=== PATIENT | female | born 1980 | race Caucasian/White ===

== ENCOUNTER 2020-06-07 11:57 | Outpatient (REF) | payer OTHER, SELFPAY ==
[2020-06-07 12:31] LABS: COVID-19 Test Positive (Negative); IDNOW Serial# 55D5AD1C
== END 2020-06-07 11:58 | disposition home or self-care (01) ==
LOC: HO.LAB 11:57
PROVIDERS: Visit Provider Internal Medicine
DX: Z20.822 Contact with and (suspected) exposure to COVID-19 (principal)
CPT/HCPCS: 36415; 87635; C9803

== ENCOUNTER 2021-05-12 10:56 | Emergency (ER) | payer MEDICAID, SELFPAY ==
[2021-05-12 11:23] VITALS: BP 140/90; PULSE 63; RESP 19; TEMP 36.6; O2SAT 98; BMI 39.9
--- NOTE | 2021-05-12 11:32 | ED_ITS ---
HPI - Ear Problem General Chief complaint: Ear Problems Stated complaint: ear/throat and jaw pain Time Seen by Provider: 05/12/21 11:28 Source: patient and freelance interpreter/translator Mode of arrival: ambulatory Limitations: no limitations History of Present Illness HPI Narrative: 40 y/o female presenting to the ER with left ear pain, left jaw pain and a painful lump along her left jaw. She reports the pain started 2 days ago and has been worsening. It is worse with laying down and chewing. She states the pain starts in the lump and radiates up the jaw to the ear. She denies URI symptoms such as runny nose, cough, nasal congestion. No known sick contacts. No difficulty swallowing. No sore throat. MD Complaint: ear pain Location: left ear Duration: intermittent Severity: moderate Relieving factors: nothing Exacerbating factors: position of head and palpation Discharge from ear: no Associated symptoms ear: headache Treatment prior to arrival: none Related Data Previous Rx's Medication Instructions Recorded amoxicillin 875 mg-potassium 1 tab PO Q12H #20 tab 05/12/21 clavulanate 125 mg tablet ibuprofen 600 mg tablet 600 mg PO Q8H PRN #30 tab 05/12/21 Allergies Allergy/AdvReac Type Severity Reaction Status Date / Time No Known Allergies Allergy Unverified 11/13/19 19:11 [No Known Allergies*] Review of Systems Review of Systems: Constitutional: No Fever, No Chills ENT/Mouth: No sore throat, No Rhinorrhea, No Swallowing Difficulty, +Otalgia, No dental pain, No hearing loss, No ear drainage Eyes: No Eye Pain, No Swelling, No Redness Cardiovascular: No Chest Pain, No SOB, No Orthopnea, No Edema Respiratory: No Cough, No Sputum, No Wheezing, No dyspnea Gastrointestinal: No Nausea, No Vomiting, No abdominal Pain Musculoskeletal: No joint pain, No Myalgias Skin: No Skin Lesions, No rash Neuro: No Weakness, No Numbness, No Dizziness, No Headache Heme/Lymph: No Bruising, + Lymphadenopathy Physical Exam Vital Signs: Vital Signs: Last Vital Signs Temp 98 F 05/12/21 11:23 Pulse 63 05/12/21 11:23 Resp 19 05/12/21 11:23 BP 140/90 H 05/12/21 11:23 Pulse Ox 98 05/12/21 11:23 BMI result Body Mass Index 39.9 Appearance: Alert. Oriented X3. No acute distress. HEENT: angle of the left mandible with swelling and tenderness with associated LAD, left EAC and TM normal. no trismus, normal dentition and no palpable abscess CVS: Normal heart rate and rhythm. Pulses normal. Respiratory: No respiratory distress. Skin: Skin warm and dry. Normal skin color. Normal skin turgor. No rashes. Extremities: normal inspection, normal ROM x4 Neuro: Oriented X 3. No motor deficit. No sensory deficit. Course Course Course Narrative: 40 y/o female presenting to the ER with left ear pain, left jaw pain and a painful lump for the last few days. No dental pain. No ear infection. Normal swallow and no URI symptoms. Exam is most consistent with inflamed parotid gland. Counseled with sign language interpreter management - will give empiric abx as well. Stable for d/c Discharge Plan Discharge Clinical Impression: Acute parotitis Patient Disposition: Home, Self-Care Instructions: Adenitis (ED) Additional Instructions: If you develop new or worsening symptoms call 911 or come back to the ER for further evaluation. Prescriptions: New amoxicillin-pot clavulanate 875-125 mg tablet 1 tab PO Q12H Qty: 20 0RF ibuprofen 600 mg tablet 600 mg PO Q8H PRN (Reason: fever or pain) Qty: 30 0RF Referrals: Gabi Serna MD [Primary Care Provider] - 1 week (follow up) Stand Alone Forms: Work/School Release Interventions: ED Discharge Assessment Last Done: 05/12/21 12:11 Discharge Date/Time: 05/12/21 12:14 Print Language: Argentine
[2021-05-12] MEDS: Ibuprofen 600 MG TABLET PO (12:06)
[2021-05-12] MEDS: Acetaminophen 325 MG TABLET 975 MG PO (12:07)
== END 2021-05-12 12:14 | disposition home or self-care (01) ==
PROVIDERS: Emergency Provider Emergency Medicine; PCP Internal Medicine
DX: K11.21 Acute sialoadenitis (principal); R59.0 Localized enlarged lymph nodes; H92.02 Otalgia, left ear; R68.84 Jaw pain
CPT/HCPCS: 99283; 99284

== ENCOUNTER 2021-05-12 18:24 | Emergency (ER) | payer MEDICAID, SELFPAY ==
[2021-05-12 19:25] VITALS: BP 130/81; PULSE 75; RESP 18; TEMP 36.5; O2SAT 98; BMI 38.7
[2021-05-12] MEDS: Acetaminophen 325 MG TABLET 650 MG PO (19:36)
[2021-05-12 21:32] VITALS: BP 158/82; PULSE 70; RESP 16; TEMP 36.8; O2SAT 98
--- NOTE | 2021-05-12 23:12 | ED.EAR ---
HPI - Ear Problem General Chief complaint: Ear Problems Stated complaint: head, ear, neck pain Time Seen by Provider: 05/12/21 18:34 Source: patient Mode of arrival: ambulatory Limitations: no limitations History of Present Illness HPI Narrative: Patient comes today for a 2nd time complaining of left-sided facial pain. Earlier today she was diagnosed with an inflamed paranoid blood. Patient was prescribed ibuprofen and Augmentin. Patient states that she is still in pain and that is why she came back to the emergency room. Patient denies fever chills, no ear pain, no dental pain Related Data Previous Rx's Medication Instructions Recorded amoxicillin 875 mg-potassium 1 tab PO Q12H #20 tab 05/12/21 clavulanate 125 mg tablet ibuprofen 600 mg tablet 600 mg PO Q8H PRN #30 tab 05/12/21 Allergies Allergy/AdvReac Type Severity Reaction Status Date / Time No Known Allergies Allergy Verified 05/12/21 19:25 [No Known Allergies*] Review of Systems Review of Systems: Constitutional : No Weight loss, No Fever, No Chills, No Night Sweats, No Fatigue, No Malaise ENT/Mouth : No Hearing loss, No Ear Pain, No Nasal Congestion, No Sinus Pain, No Hoarseness, No sore throat, No Rhinorrhea, No Swallowing Difficulty, complaining of pain in the left side of the face and left side of the neck Eyes: No Eye Pain, No Swelling, No Redness, No Foreign Body, No Discharge, No Vision Changes Cardiovascular : No Chest Pain, No SOB, No Dyspnea on Exertion, No Orthopnea, No Edema, No Palpitations Respiratory : No Cough, No Sputum, No Wheezing, No Smoke Exposure, No Dyspnea Gastrointestinal : No Nausea, No Vomiting, No Diarrhea, No Constipation, No abdominal Pain, No Hematochezia, No Melena Genitourinary : no irregular bleeding, No Dysuria, No Urinary Frequency, No Hematuria, No Urinary Incontinence, No Urgency, No Flank Pain, No Urinary Flow Changes, No Hesitancy Musculoskeletal : No joint pain, No Myalgias, No Joint Swelling Skin : No Skin Lesions, No rash Neuro : No Weakness, No Numbness, No Paresthesias, No Loss of Consciousness, No Dizziness, No Headache Psych : No Anxiety/Panic, No Depression, No SI/HI/AH/VH, No Social Issues, Heme/Lymph: No Bruising, No Bleeding,No Lymphadenopathy Endocrine : No Polyuria, No Polydipsia, No Temperature Intolerance [facility], [facility] Social History Social History Advance Directives: No Advance Directives Information Provided: Yes Patient : No Physical Exam Vital Signs: Vital Signs: Last Vital Signs Temp 98.2 F 05/12/21 21:32 Pulse 70 05/12/21 21:32 Resp 16 05/12/21 21:32 BP 158/82 H 05/12/21 21:32 Pulse Ox 98 05/12/21 21:32 BMI result Body Mass Index 38.7 Const: Other: Appearance: Alert. Oriented X3. No acute distress. Eyes: Pupils equal, round and reactive to light. ENT: Pharynx normal. No dental pain. Left mandibular tenderness to palpation, ear canals bilaterally within normal limits, no trismus Neck: Normal inspection. Neck supple. No lymph nodes noted. No crepitus, flexion and extension of the neck within normal limits and no stiffness CVS: Normal heart rate and rhythm. Pulses normal. Normal S1 and S2 Respiratory: No respiratory distress. Breath sounds normal. No Wheezing. No rales Abdomen: Soft and nontender. No rigidity. No distention. Skin: Skin warm and dry. Normal skin color. Normal skin turgor. Extremities: No lower extremity edema. No Lacerations. No Rash Neuro: Oriented X 3. No motor deficit. No sensory deficit. Moving all extremities. No slurred speech. CN 2 through 12 grossly intact Psych: calm, cooperative, normal affect Course Course Course Narrative: Patient was given 1 dose of IM Toradol in the emergency room. Patient instructed to continue taking her antibiotic as instructed earlier today. Trigeminal neuralgia is not suspected. Has no pain in the floor of the mouth or in the neck, Magdaleno's angina is not suspected Discharge Plan Discharge Clinical Impression: Acute parotitis Patient Disposition: Home, Self-Care Instructions: Atypical Facial Pain (ED) Additional Instructions: Continue taking her antibiotic as prescribed. Please follow-up with your primary care physician tomorrow. If you have any worsening or new symptoms, please return to the emergency room or call 911 Prescriptions: No Action amoxicillin-pot clavulanate 875-125 mg tablet 1 tab PO Q12H Qty: 20 0RF ibuprofen 600 mg tablet 600 mg PO Q8H PRN (Reason: fever or pain) Qty: 30 0RF
[2021-05-12] MEDS: Ketorolac Tromethamine 60 MG/2 ML VIAL IM (23:21)
== END 2021-05-12 23:28 | disposition home or self-care (01) ==
PROVIDERS: Emergency Provider Emergency Medicine
DX: K11.21 Acute sialoadenitis (principal); M54.2 Cervicalgia; R68.84 Jaw pain
CPT/HCPCS: 96372; 99283; 99284; J1885

== ENCOUNTER 2021-05-26 09:11 | Outpatient (REF) | payer MEDICAID, SELFPAY ==
[2021-05-26 09:48] LABS: MANUAL DIFF FLAG NO
[2021-05-26 10:04] LABS: Basophils Percent Auto 0.5 % (0-2); Eosinophils Absolute Auto 0.1 X10*3/uL (0.0-0.4); Eosinophils Percent Auto 1.3 % (0-4); Hematocrit 44.3 % (37.0-47.0); Hemoglobin 14.2 g/dl (12.0-16.0); Imm Gran Abs Auto 0.01 X10*3/uL (0.00-0.03); Imm Gran Pct Auto 0.3 % (0.0-0.4); Lymphocytes Absolute Auto 1.7 X10*3/uL (1.2-4.9); Lymphocytes Percent Auto 43.6 % (20-40); Mean Corpuscular HGB Conc 32.1 g/dl (31.0-35.0); Mean Corpuscular Hemoglobin 29.8 pg (27.0-33.0); Mean Corpuscular Volume 93.1 fL (80.0-98.0); Mean Platelet Volume 9.6 fL (9.4-12.3); Monocytes Absolute Auto 0.4 X10*3/uL (0.1-1.2); Monocytes Percent Auto 10.2 % (2-11); Neutrophils Absolute Auto 1.7 x10*3/uL (2.0-8.3); Neutrophils Percent Auto 44.1 % (45-73); Platelet Count 360 X10*3/uL (160-400); Red Blood Count 4.76 X10*6/uL (4.20-5.50); Red Cell Distribution Width 14.1 % (11.0-16.0); White Blood Count 3.8 X10*3/uL (4.8-10.8)
[2021-05-26 10:34] LABS: Alanine Aminotransferase 30 U/L (0-31); Albumin Level 4.1 g/dL (3.5-5.0); Alkaline Phosphatase 86 U/L (39-117); Anion Gap 13 (12-20); Aspartate Amino Transferase 17 U/L (5-31); Bilirubin Total 0.3 mg/dL (0.0-1.0); Blood Urea Nitrogen 11 mg/dL (9-16); Calcium 9.5 mg/dL (8.4-10.2); Carbon Dioxide 28 mmol/L (22-29); Chloride 104 mmol/L (96-108); Estimated Glomerular Filt Rate > 60; Glucose Random 100 mg/dL (60-115); Potassium 4.9 mmol/L (3.3-5.1); Sodium 140 mmol/L (135-145); Total Protein 7.9 g/dL (6.5-8.0)
[2021-05-26 10:36] LABS: Erythrocyte Sedimentation Rate 25 MM/HR (0-20)
[2021-05-26 10:51] LABS: HBS Num1 1.05 mIU/mL (0-7.99); HBc Num1 0.08 S/CO (0.00-0.79); HBsAGNum1 0.18 S/CO (0.00-0.99); HIV AB/AG Nonreactive (Nonreactive); HIV Num 1 0.09 S/CO (0.00-0.99); Hepatitis B Core Antibody Nonreactive (Nonreactive); Hepatitis B Surface Antigen Negative (Negative); ~HepC Num1 0.55 S/CO (0.00-0.79); ~Hepatitis B Surface Antibody NONREACTIVE (Nonreactive); ~Hepatitis C Antibody Nonreactive (Nonreactive)
[2021-05-26 11:26] LABS: Folate 16.3 ng/mL (> or = 4.0); Vitamin B12 530 pg/mL (200-900)
[2021-05-27 08:31] LABS: ~Hepatitis A Antibody IgM Nonreactive (Nonreactive)
[2021-05-31 14:32] LABS: Vitamin D 25-OH, D2 <4 ng/mL; Vitamin D 25-OH, D3 6 ng/mL; Vitamin D 25-OH, Total 6 ng/mL (30-100)
== END 2021-05-26 09:12 | disposition home or self-care (01) ==
LOC: HO.LAB 09:11
PROVIDERS: PCP Nurse Practitioner Acute Care; Visit Provider Nurse Practitioner Acute Care
DX: Z11.4 Encounter for screening for human immunodeficiency virus [HIV] (principal); K11.21 Acute sialoadenitis
CPT/HCPCS: 36415; 80053; 82306; 82607; 82746; 84443; 85025; 85652; 86140; 86704; 86706; 86709; 86803; 87340; 87389

== ENCOUNTER 2021-07-23 18:07 | Inpatient (IN) | payer MEDICAID, SELFPAY ==
--- NOTE | ~2021-07-23 | CT_ITS ---
EXAMINATION: CT SOFT TISSUE NECK WITHOUT CONTRAST CLINICAL INFORMATION: Pain at left jaw, question abscess COMPARISON: None TECHNIQUE: Helical imaging was performed in the axial plane with generation of coronal and sagittal reformatted images. This CT examination was performed using dose optimization techniques as appropriate, variously including the following: *Automated exposure control *Adjustment of mA and/or kV according to patient size (this includes techniques or standardized protocols for targeted exams where dose is matched to indication/reason for exam; i.e. extremities or head) *Use of iterative reconstruction technique DLP: 651 mGy-cm FINDINGS: Stranding is present in the left parapharyngeal fat and adjacent to the deep aspect of the left parotid gland. No discrete fluid collection is seen, though assessment is somewhat limited without intravenous contrast. Scattered bilateral cervical lymph nodes are noted, slightly more prominent on the left with borderline enlargement. The submandibular glands appear symmetric. No contour abnormality is seen within the oral cavity or pharyngeal mucosal space. The laryngeal structures appear normal. No retropharyngeal fluid collection is seen. The thyroid gland is normal. The superior mediastinum is unremarkable. The lung apices are clear. The mastoid air cells and visualized portions of the paranasal sinuses are well-aerated. The temporomandibular joints are normal. There is mild disc space narrowing and endplate osteophyte formation in the lower cervical spine. The imaged portions of the brain parenchyma are unremarkable. CT/CT soft tissue neck wo con IMPRESSION: Stranding adjacent to the deep aspect of the left parotid gland and in the left parapharyngeal fat, which could be due to parotitis. No fluid collection identified on this noncontrast exam.
[2021-07-23 20:22] VITALS: PULSE 74; RESP 16; TEMP 36.2; O2SAT 97; BMI 35.2
[2021-07-23 20:37] LABS: MANUAL DIFF FLAG NO
[2021-07-23 20:59] LABS: Alanine Aminotransferase 31 U/L (0-31); Alkaline Phosphatase 81 U/L (39-117); Anion Gap 13 (12-20); Aspartate Amino Transferase 22 U/L (5-31); Bilirubin Total 0.3 mg/dL (0.0-1.0); Blood Urea Nitrogen 9 mg/dL (9-16); Calcium 9.6 mg/dL (8.4-10.2); Carbon Dioxide 28 mmol/L (22-29); Chloride 104 mmol/L (96-108); Creatinine Clr Calc Pharmacy 123.9; Estimated Glomerular Filt Rate > 60; Glucose Random 113 mg/dL (60-115); Potassium 3.9 mmol/L (3.3-5.1); Sodium 141 mmol/L (135-145); Total Protein 7.8 g/dL (6.5-8.0)
[2021-07-23 21:00] LABS: Basophils Percent Auto 0.2 % (0-2); Eosinophils Percent Auto 0.7 % (0-4); Hematocrit 42.1 % (37.0-47.0); Hemoglobin 13.6 g/dl (12.0-16.0); Imm Gran Abs Auto 0.01 X10*3/uL (0.00-0.03); Imm Gran Pct Auto 0.2 % (0.0-0.4); Lymphocytes Absolute Auto 2.3 X10*3/uL (1.2-4.9); Lymphocytes Percent Auto 39.5 % (20-40); Mean Corpuscular HGB Conc 32.3 g/dl (31.0-35.0); Mean Corpuscular Hemoglobin 29.4 pg (27.0-33.0); Mean Corpuscular Volume 90.9 fL (80.0-98.0); Mean Platelet Volume 9.6 fL (9.4-12.3); Monocytes Absolute Auto 0.6 X10*3/uL (0.1-1.2); Monocytes Percent Auto 10.4 % (2-11); Neutrophils Absolute Auto 2.8 x10*3/uL (2.0-8.3); Platelet Count 385 X10*3/uL (160-400); Red Blood Count 4.63 X10*6/uL (4.20-5.50); Red Cell Distribution Width 13.8 % (11.0-16.0); White Blood Count 5.8 X10*3/uL (4.8-10.8)
[2021-07-24] MEDS: Ketorolac Tromethamine 30 MG/ML VIAL 15 MG IVPUSH ×3 (00:24→21:57)
--- NOTE | 2021-07-24 00:38 | ED.DENTAL ---
HPI - Dental/Oral General Chief complaint: Dental/Oral Stated complaint: teeth hurt, cant open jaw, inflamed throat Time Seen by Provider: 07/24/21 00:11 Source: patient and language interpreter Mode of arrival: ambulatory History of Present Illness HPI Narrative: 40-year-old female with 2 day history of left lower ?wisdom tooth? pain that patient has had ongoing troubles with and now she states she is unable to open her mouth completely and reports chills but otherwise is able to breathe without difficulty and handle all secretions. Teeth map: 1. Pain, pus Related Data Previous Rx's Medication Instructions Recorded acetaminophen 500 mg tablet 1,000 mg PO Q6H PRN #60 tab 05/26/21 clindamycin HCl 300 mg capsule 300 mg PO Q6H #28 cap 05/26/21 ibuprofen 600 mg tablet 600 mg PO Q8H PRN #30 tab 05/26/21 cholecalciferol (vitamin D3) 50 50 mcg PO DAILY #30 cap 05/31/21 mcg (2,000 unit) capsule Allergies Allergy/AdvReac Type Severity Reaction Status Date / Time No Known Allergies Allergy Verified 05/26/21 08:12 [No Known Allergies*] Review of Systems Review of Systems: Pertinent positives and negatives as stated in HPI 10 point review of systems is otherwise negative. [facility] Past Medical History Source: nursing notes reviewed Family History Family History Mother Diabetes High blood pressure Father High blood pressure Diabetes Social History Social History Housing: Apartment Alcohol intake: never Patient Tobacco Use Status: Never used Tobacco Second Hand Smoke Exposure: No Use of substances other than those prescribed or required for medical reasons: No Advance Directives: No service: No Current occupational status: employed Physical Exam Vital Signs: Vital Signs: Last Vital Signs Temp 97.1 F 07/23/21 20:22 Pulse 74 07/23/21 20:22 Resp 16 07/23/21 20:22 Pulse Ox 97 07/23/21 20:22 BMI result Body Mass Index 35.2 VITAL SIGNS: Reviewed. GENERAL: Well developed, well nourished, in no acute distress. HEAD: Normocephalic/atraumatic EYES: PERRLA, EOMI EARS: Ext canals without abnormality, TMs non-bulging and non-erythematous; left external canal somewhat erythematous NOSE: Nares patent bilateral OROPHARYNX: Patient unable to open mouth adequately, floor of mouth is soft submental area is soft, with difficulty able to visualize left lower molar which clearly has a large cavity, questionable pus and mild erythema NECK: Supple, no adenopathy LUNGS: Normal breath sounds. No adventitious sounds or accessory muscle use. SpO2<97> CARDIOVASCULAR: Regular rate and rhythm without noted murmurs ABDOMEN: Soft, non-tender, non-distended with bowel sounds. MUSCULOSKELETAL: No tenderness, deformities, or effusions noted on gross inspection. EXTREMITIES: No cyanosis, clubbing or edema. SKIN: Inspection of the skin reveals no rashes NEUROLOGIC: Alert and oriented x 4. Strength and sensation to light touch were grossly intact x 4. Course Course Course Narrative: 40-year-old female with history and clinical presentation unlikely to be Magdaleno's although patient declines to open mouth adequately for extensive evaluation there is no noted gingival abscess patient is able to have tolerate secretions, there is no stridor or difficulty with breathing, the floor of the mouth and under side of the neck is soft and not consistent with Magdaleno's, will place IV give IV fluids as well as antibiotics and pain medication and re-evaluate. Also will pursue CT soft tissue for demonstration of abscess to better explain patient's inability to open her mouth. 0225: Review investigations does not show a leukocytosis, but after patient received pain medication and CT scan it demonstrates evidence to suggest contribution by dental caries. I discussed the case with the inpatient hospitalist who will accept the patient. At this time I suspect infection, will get lactic acid/blood cultures and give antibiotics. Patient will be informed of all plans and she will be admitted. [facility] - Dental/Oral Lab Data Result diagrams: 07/23/21 20:27 07/23/21 20:27 Labs: Lab Results 07/23/21 07/23/21 Range/Units 20:27 20:27 WBC 5.8 (4.8-10.8) X10*3/uL RBC 4.63 (4.20-5.50) X10*6/uL Hgb 13.6 (12.0-16.0) g/dl Hct 42.1 (37.0-47.0) % MCV 90.9 (80.0-98.0) fL MCH 29.4 (27.0-33.0) pg MCHC 32.3 (31.0-35.0) g/dl RDW 13.8 (11.0-16.0) % Plt Count 385 (160-400) X10*3/uL MPV 9.6 (9.4-12.3) fL Immature Gran % (Auto) 0.2 (0.0-0.4) % Neut % (Auto) 49.0 (45-73) % Lymph % (Auto) 39.5 (20-40) % Bee % (Auto) 10.4 (2-11) % Eos % (Auto) 0.7 (0-4) % Baso % (Auto) 0.2 (0-2) % Lymph # (Auto) 2.3 (1.2-4.9) X10*3/uL Bee # (Auto) 0.6 (0.1-1.2) X10*3/uL Eos # (Auto) 0.0 (0.0-0.4) X10*3/uL Baso # (Auto) 0.0 (0.0-0.2) X10*3/uL Abs Immat Gran (auto) 0.01 (0.00-0.03) X10*3/uL Absolute Neuts (auto) 2.8 (2.0-8.3) x10*3/uL Absolute Nucleated RBC 0.000 (0.0-0.012) X10*3/uL Nucleated RBC % (auto) 0.0 (0.0-0.2) /100WBC Sodium 141 (135-145) mmol/L Potassium 3.9 D (3.3-5.1) mmol/L Chloride 104 (96-108) mmol/L Carbon Dioxide 28 (22-29) mmol/L Anion Gap 13 (12-20) BUN 9 (9-16) mg/dL Creatinine 0.75 (0.5-1.4) mg/dL Estim Creat Clear Calc 123.9 Estimated GFR > 60 Random Glucose 113 (60-115) mg/dL Calcium 9.6 (8.4-10.2) mg/dL Total Bilirubin 0.3 (0.0-1.0) mg/dL AST 22 (5-31) U/L ALT 31 (0-31) U/L Alkaline Phosphatase 81 (39-117) U/L Total Protein 7.8 (6.5-8.0) g/dL Albumin 4.0 (3.5-5.0) g/dL Beta HCG, Quant < 2 mIU/mL Discharge Plan Discharge Clinical Impression: Acute parotitis, Dental caries Patient Disposition: Admitted As Inpatient Prescriptions: No Action cholecalciferol (vitamin D3) 50 mcg (2,000 unit) capsule 50 mcg PO DAILY Qty: 30 2RF acetaminophen 500 mg tablet 1,000 mg PO Q6H PRN (Reason: pain) Qty: 60 0RF ibuprofen 600 mg tablet 600 mg PO Q8H PRN (Reason: fever or pain) Qty: 30 0RF clindamycin HCl 300 mg capsule 300 mg PO Q6H Qty: 28 0RF
[2021-07-24 00:41] LABS: HCG Quantitative < 2 mIU/mL
[2021-07-24] MEDS: 0.9 % Sodium Chloride 1,000 ML 999 ML IV (03:06)
--- NOTE | 2021-07-24 03:08 | PC.NURSE ---
pt refusing second set of blood cultures to be drawn, aware.
[2021-07-24] MEDS: Nafcillin Sodium 2 GM in 0.9 % Sodium Chloride 100 ML IV (03:11)
[2021-07-24 03:12] LABS: COVID-19 Test Negative (Negative); IDNOW Serial# 55D5AD1C
[2021-07-24 03:15] LABS: IDNOW Serial# 9DB6401D; Influenza A Negative (Negative); Influenza B2 Negative (Negative)
--- NOTE | 2021-07-24 03:19 | PC.NURSE ---
per okay to administer abx without second set of blood cultures
[2021-07-24 03:20] VITALS: BP 145/82; PULSE 77; RESP 16; TEMP 37.1; O2SAT 99
[2021-07-24] MEDS: metroNIDAZOLE/NS 500 MG/100 ML PIGGYBACK 100 MG IV (03:46)
[2021-07-24] MEDS: Dextrose 5 % and 0.45 % NaCl 1,000 ML 100 ML IVCONT ×3 (05:57→21:57)
--- NOTE | 2021-07-24 06:08 | P.HPHOSP_ITS ---
History of Present Illness Date of Service: 07/24/21 Chief Complaint: left-sided jaw pain 40-year-old female with no significant past medical history presented to the hospital with a chief complaint of left-sided jaw pain. Patient reported that over the past 2 days she has been having left-sided lower jaw pain; attributes to possible wisdom tooth eruption; Patient reports gradual swelling on the left side of the face with difficulty opening the mouth; resulting in decreased oral intake. Denies any shortness of breath. Denies any fevers and chills. Denies any chest pain or palpitations. Review of all other systems is negative except mentioned above ER course: Per ER team patient's oral exam is limited as patient was ambulated able to open the mouth fully. soft tissues of the neck showed acute parotitis, no evidence of abscess. Given antibiotics. Admitted for further management. [facility] Family History Mother Diabetes High blood pressure Father High blood pressure Diabetes Social History Housing: Apartment Alcohol intake: never Patient Tobacco Use Status: Never used Tobacco Second Hand Smoke Exposure: No Use of substances other than those prescribed or required for medical reasons: No Advance Directives: No service: No Current occupational status: employed Meds Allergies Allergy/AdvReac Type Severity Reaction Status Date / Time No Known Allergies Allergy Verified 05/26/21 08:12 [No Known Allergies*] Active Medications: Current Medications Enoxaparin Sodium (Enoxaparin Sodium 40 Mg/0.4 Ml Syringe) 40 mg SUBCUT Q24H [facility] Dextrose/Sodium Chloride (D51/2ns) 1,000 mls @ 100 mls/hr IVCONT .Q10H [facility] Last Admin: 07/24/21 05:57 Dose: 100 mls/hr Documented by: Clindamycin Phosphate (Cleocin) 600 mg in 50 mls @ 100 mls/hr IV Q8H DANIELA Ketorolac Tromethamine (Ketorolac Tromethamine 30 Mg/Ml Vial) 15 mg IVPUSH Q6H PRN PRN Reason: Pain, Mild (Pain Scale 1-3) Stop: 07/29/21 04:17 Sodium Chloride (0.9 % Sodium Chloride Flush 3 Ml Syringe) 3 ml IVFLUSH QSHIFT [facility] Physical Exam Vital Signs and Narrative: Vital Signs: Last Vital Signs Temp 98.8 F 07/24/21 03:20 Pulse 77 07/24/21 03:20 Resp 16 07/24/21 03:20 BP 145/82 H 07/24/21 03:20 Pulse Ox 99 07/24/21 03:20 BMI result Body Mass Index 35.2 Results Labs CBC and Chem 7: 07/23/21 20:27 07/23/21 20:27 Labs: Laboratory Results - last 24 hr 07/23/21 07/23/21 07/24/21 20:27 20:27 02:47 MCV 90.9 MCH 29.4 MCHC 32.3 RDW 13.8 Plt Count 385 MPV 9.6 Immature Gran % (Auto) 0.2 Neut % (Auto) 49.0 Lymph % (Auto) 39.5 Rock % (Auto) 10.4 Eos % (Auto) 0.7 Baso % (Auto) 0.2 Lymph # (Auto) 2.3 Rock # (Auto) 0.6 Eos # (Auto) 0.0 Baso # (Auto) 0.0 Abs Immat Gran (auto) 0.01 Absolute Neuts (auto) 2.8 Absolute Nucleated RBC 0.000 Nucleated RBC % (auto) 0.0 Anion Gap 13 Estim Creat Clear Calc 123.9 Estimated GFR > 60 Random Glucose 113 Lactic Acid Calcium 9.6 Total Bilirubin 0.3 AST 22 ALT 31 Alkaline Phosphatase 81 Total Protein 7.8 Albumin 4.0 Beta HCG, Quant < 2 COVID-19 ([facility]) COVID-19 Clin Com Influenza Type A (AARON) Negative Influenza Type B (AARON) Negative Influenza A & B Note See Note 07/24/21 07/24/21 02:47 02:47 MCV MCH MCHC RDW Plt Count MPV Immature Gran % (Auto) Neut % (Auto) Lymph % (Auto) Rock % (Auto) Eos % (Auto) Baso % (Auto) Lymph # (Auto) Rock # (Auto) Eos # (Auto) Baso # (Auto) Abs Immat Gran (auto) Absolute Neuts (auto) Absolute Nucleated RBC Nucleated RBC % (auto) Anion Gap Estim Creat Clear Calc Estimated GFR Random Glucose Lactic Acid 1.0 Calcium Total Bilirubin AST ALT Alkaline Phosphatase Total Protein Albumin Beta HCG, Quant COVID-19 ([facility]ANDIS) Negative COVID-19 Clin Com See Note Influenza Type A (AARON) Influenza Type B (AARON) Influenza A & B Note Imaging Radiologist's Impressions: Impressions Soft Tissue Neck CT 07/24/21 01:17 IMPRESSION: Stranding adjacent to the deep aspect of the left parotid gland and in the left parapharyngeal fat, which could be due to parotitis. No fluid collection identified on this noncontrast exam. Assessment and Plan (1) Acute parotitis: Status: Acute Plan 40-year-old female with no significant past medical history presented to the hospital with a chief complaint of left-sided jaw pain/ Poor oral intake for the past 2 days. Noted to have acute parotitis. Admitted for further management. Acute pharyngitis: Continue clindamycin 600 mg IV t.i.d. NPO ->Advanced diet as tolerated Pain control gentle IV fluids Decadron IV x1 DVT prophylaxis: Lovenox Code status: Full code Quality Stroke Does the patient have a stroke diagnosis?: No VTE Prior VTE?: No VTE Risk Level:: Medical - moderate - high VTE Device Contraindication: Treatment Not Indicated VTE Drug Contraindication: N/A - Med Ordered
[2021-07-24] MEDS: Clindamycin Phosphate/D5W 600 MG/50 ML PIGGYBACK 100 MG IV ×3 (06:30→21:57)
[2021-07-24] MEDS: dexAMETHasone sod phosphate 4 MG/ML VIAL 6 MG IVPUSH (06:31)
[2021-07-24 07:19] LABS: MANUAL DIFF FLAG NO
[2021-07-24 07:22] LABS: Basophils Percent Auto 0.4 % (0-2); Eosinophils Percent Auto 0.6 % (0-4); Hemoglobin 12.7 g/dl (12.0-16.0); Imm Gran Abs Auto 0.01 X10*3/uL (0.00-0.03); Imm Gran Pct Auto 0.2 % (0.0-0.4); Lymphocytes Absolute Auto 2.2 X10*3/uL (1.2-4.9); Lymphocytes Percent Auto 41.3 % (20-40); Mean Corpuscular HGB Conc 32.6 g/dl (31.0-35.0); Mean Corpuscular Hemoglobin 30.1 pg (27.0-33.0); Mean Corpuscular Volume 92.4 fL (80.0-98.0); Mean Platelet Volume 9.7 fL (9.4-12.3); Monocytes Absolute Auto 0.5 X10*3/uL (0.1-1.2); Monocytes Percent Auto 9.9 % (2-11); Neutrophils Absolute Auto 2.5 x10*3/uL (2.0-8.3); Neutrophils Percent Auto 47.6 % (45-73); Platelet Count 352 X10*3/uL (160-400); Red Blood Count 4.22 X10*6/uL (4.20-5.50); Red Cell Distribution Width 13.8 % (11.0-16.0); White Blood Count 5.3 X10*3/uL (4.8-10.8)
[2021-07-24 07:28] VITALS: BP 133/94; PULSE 74; RESP 16; O2SAT 96
[2021-07-24 07:45] LABS: Anion Gap 12 (12-20); Blood Urea Nitrogen 9 mg/dL (9-16); Carbon Dioxide 26 mmol/L (22-29); Chloride 106 mmol/L (96-108); Creatinine Clr Calc Pharmacy 117.6; Estimated Glomerular Filt Rate > 60; Glucose Random 118 mg/dL (60-115); Potassium 3.9 mmol/L (3.3-5.1); Sodium 140 mmol/L (135-145)
[2021-07-24] MEDS: Enoxaparin Sodium 40 MG/0.4 ML SYRINGE SUBCUT (08:23)
[2021-07-24] MEDS: 0.9 % Sodium Chloride Flush 3 ML SYRINGE IVFLUSH ×3 (08:23→21:58)
--- NOTE | 2021-07-24 09:48 | PHA.MEDREC ---
Pharmacy Consult ? Medication Reconciliation Pharmacy has completed the medication reconciliation. Patient reports only taking vitamin d2. Carolina Cuevas, KemD
[2021-07-24 11:54] VITALS: BP 126/87; PULSE 79; RESP 14; O2SAT 95
--- NOTE | 2021-07-24 12:40 | PC.NURSE ---
First call to Medsurg. Magda luis to take report. awaiting call back at this time.
[2021-07-24 13:54] VITALS: BMI 35.2
[2021-07-24 15:25] VITALS: BP 114/76; PULSE 78; RESP 14; TEMP 36.3; O2SAT 95
--- NOTE | 2021-07-24 17:10 | P.PNIM_ITS ---
Subjective Subjective Date of Service: 07/24/21 Interval History: pt Irish speaking , obained the help of an diplomatic interpreter Pt reports improved pain and ability to open her mouth. she ate breakfast with minimal difficulty denies any overnight fever, no chills, no abd pain, no cp, no n/v. no SOB Review of Systems Review of Systems: Yes all other systems are reviewed and are negative Physical Exam Vital Signs: Vital Signs: Last Vital Signs Temp 97.3 F 07/24/21 15:25 Pulse 78 07/24/21 15:25 Resp 14 07/24/21 15:25 BP 114/76 07/24/21 15:25 Pulse Ox 95 07/24/21 15:25 BMI result Body Mass Index 35.2 Const: General: cooperative and no acute distress HEENT: Other: slight swelling, able to open her mouth with small amount of pain Resp: Effort & Inspection: normal respiratory effort Auscultation: clear to auscultation bilaterally Cardio: Other: RR GI: Inspection: Yes normal to inspection Palpation (GI): Soft to palpation Auscultation: normal bowel sounds Objective Data Active Medications Enoxaparin Sodium (Enoxaparin Sodium 40 Mg/0.4 Ml Syringe) 40 mg SUBCUT Q24H [facility] Last Admin: 07/24/21 08:23 Dose: 40 mg Documented by: SAUL Dextrose/Sodium Chloride (D51/2ns) 1,000 mls @ 100 mls/hr IVCONT .Q10H [facility] Last Admin: 07/24/21 13:52 Dose: 100 mls/hr Documented by: DIMITRIS Clindamycin Phosphate (Cleocin) 600 mg in 50 mls @ 100 mls/hr IV Q8H [facility] Last Infusion: 07/24/21 15:01 Dose: 0 mls/hr Documented by: DIMITRIS Ketorolac Tromethamine (Ketorolac Tromethamine 30 Mg/Ml Vial) 15 mg IVPUSH Q6H PRN PRN Reason: Pain, Mild (Pain Scale 1-3) Stop: 07/29/21 04:17 Last Admin: 07/24/21 14:10 Dose: 15 mg Documented by: DIMITRIS Sodium Chloride (0.9 % Sodium Chloride Flush 3 Ml Syringe) 3 ml IVFLUSH QSHIFT [facility] Last Admin: 07/24/21 13:49 Dose: 3 ml Documented by: DIMITRIS Labs CBC & Chem 7: 07/24/21 07:01 07/24/21 07:01 Labs: Laboratory Results - last 24 hr 07/23/21 07/23/21 07/24/21 20:27 20:27 02:47 MCV 90.9 MCH 29.4 MCHC 32.3 RDW 13.8 Plt Count 385 MPV 9.6 Immature Gran % (Auto) 0.2 Neut % (Auto) 49.0 Lymph % (Auto) 39.5 [place] % (Auto) 10.4 Eos % (Auto) 0.7 Baso % (Auto) 0.2 Lymph # (Auto) 2.3 [place] # (Auto) 0.6 Eos # (Auto) 0.0 Baso # (Auto) 0.0 Abs Immat Gran (auto) 0.01 Absolute Neuts (auto) 2.8 Absolute Nucleated RBC 0.000 Nucleated RBC % (auto) 0.0 Anion Gap 13 Estim Creat Clear Calc 123.9 Estimated GFR > 60 Random Glucose 113 Lactic Acid Calcium 9.6 Total Bilirubin 0.3 AST 22 ALT 31 Alkaline Phosphatase 81 Total Protein 7.8 Albumin 4.0 Beta HCG, Quant < 2 COVID-19 (CANDIS) COVID-19 Clin Com Influenza Type A (AARON) Negative Influenza Type B (AARON) Negative Influenza A & B Note See Note 07/24/21 07/24/21 07/24/21 02:47 02:47 07:01 MCV 92.4 MCH 30.1 MCHC 32.6 RDW 13.8 Plt Count 352 MPV 9.7 Immature Gran % (Auto) 0.2 Neut % (Auto) 47.6 Lymph % (Auto) 41.3 H [place] % (Auto) 9.9 Eos % (Auto) 0.6 Baso % (Auto) 0.4 Lymph # (Auto) 2.2 [place] # (Auto) 0.5 Eos # (Auto) 0.0 Baso # (Auto) 0.0 Abs Immat Gran (auto) 0.01 Absolute Neuts (auto) 2.5 Absolute Nucleated RBC 0.000 Nucleated RBC % (auto) 0.0 Anion Gap Estim Creat Clear Calc Estimated GFR Random Glucose Lactic Acid 1.0 Calcium Total Bilirubin AST ALT Alkaline Phosphatase Total Protein Albumin Beta HCG, Quant COVID-19 (CANDIS) Negative COVID-19 Clin Com See Note Influenza Type A (AARON) Influenza Type B (AARON) Influenza A & B Note 07/24/21 07:01 MCV MCH MCHC RDW Plt Count MPV Immature Gran % (Auto) Neut % (Auto) Lymph % (Auto) [place] % (Auto) Eos % (Auto) Baso % (Auto) Lymph # (Auto) [place] # (Auto) Eos # (Auto) Baso # (Auto) Abs Immat Gran (auto) Absolute Neuts (auto) Absolute Nucleated RBC Nucleated RBC % (auto) Anion Gap 12 Estim Creat Clear Calc 117.6 Estimated GFR > 60 Random Glucose 118 H Lactic Acid Calcium 9.0 D Total Bilirubin AST ALT Alkaline Phosphatase Total Protein Albumin Beta HCG, Quant COVID-19 (CANDIS) COVID-19 Clin Com Influenza Type A (AARON) Influenza Type B (AARON) Influenza A & B Note Microbiology Microbiology Results: Microbiology 07/24/21 02:58 Blood Culture - Final Blood - Venous Assessment and Plan (1) Acute parotitis: Status: Acute Plan 40-year-old female with no significant past medical history presented to the hospital with a chief complaint of left-sided jaw pain/? Poor oral intake for the past 2 days.? Noted to have acute parotitis.? Admitted for further management.? 3Acute pharyngitis: - improving - Continue clindamycin 600 mg IV t.i.d. -Advanced diet as tolerated - Pain control -?gentle IV fluids -?Decadron IV x1 ? DVT prophylaxis:? Lovenox Quality Stroke Does the patient have a stroke diagnosis?: No VTE Prior VTE?: No VTE Risk Level:: Medical - moderate - high VTE Device Contraindication: Treatment Not Indicated VTE Drug Contraindication: N/A - Med Ordered
[2021-07-24 19:36] VITALS: BP 129/74; PULSE 78; RESP 18; TEMP 36.7; O2SAT 97
[2021-07-24 23:39] VITALS: BP 119/52; PULSE 68; RESP 18; TEMP 35.9; O2SAT 96
[2021-07-25 03:50] VITALS: BP 136/44; PULSE 75; RESP 16; TEMP 36.3; O2SAT 96
[2021-07-25] MEDS: Clindamycin Phosphate/D5W 600 MG/50 ML PIGGYBACK 100 MG IV (05:13)
[2021-07-25] MEDS: Dextrose 5 % and 0.45 % NaCl 1,000 ML 100 ML IVCONT (05:13)
[2021-07-25 07:53] VITALS: BP 109/68; PULSE 69; RESP 15; TEMP 37; O2SAT 98
[2021-07-25] MEDS: Ketorolac Tromethamine 30 MG/ML VIAL 15 MG IVPUSH (07:59)
[2021-07-25] MEDS: Enoxaparin Sodium 40 MG/0.4 ML SYRINGE SUBCUT (08:00)
[2021-07-25] MEDS: 0.9 % Sodium Chloride Flush 3 ML SYRINGE IVFLUSH (08:00)
--- NOTE | 2021-07-25 10:45 | PM.DS ---
DS: Providers Provider Date of Service: 07/25/21 Date of admission: 07/24/21 04:19 Primary care physician: Unknown Physician DS: Diagnosis Discharge Diagnosis (1) Acute parotitis: Status: Acute DS: Summary Hospital Course Hospital Course: from initial hpi: Chief Complaint:? left-sided jaw pain ?40-year-old female with no significant past medical history presented to the hospital with a chief complaint of left-sided jaw pain.? Patient reported that over the past 2 days she has been having left-sided lower jaw pain; attributes to possible? wisdom tooth eruption; Patient reports gradual swelling on the left side of the face with difficulty opening the mouth; resulting in decreased oral intake.? Denies any shortness of breath.? Denies any fevers and chills.? Denies any chest pain or palpitations.? Review of all other systems is negative except mentioned above ER course: Per ER team patient's oral exam is limited as patient was ambulated able to open the mouth fully.? soft tissues of the neck showed acute parotitis, no evidence of abscess.? Given antibiotics.? Admitted for further management. hospital course: patient was admitted for left sided jaw pain and swelling, likely due to dental infection vs acute parotitis. she was treated with clindamycin with resolution of her symptoms. she will continue 7 more days augmentin and should follow up with dentist. for her obesity she should work on weight loss. Time Spent with Patient Time attestation: Total time spent providing and/or coordinating discharge services: Discharge coordination time: Greater than 30 minutes Quality: Safe Use of Opioids Does Pt have an Active Cancer Diagnosis on the Problem List?: No Quality: Stroke Does the patient have a stroke diagnosis?: No Physical Exam Vital Signs: Vital Signs: Last Vital Signs Temp 98.6 F 07/25/21 07:53 Pulse 69 07/25/21 07:53 Resp 15 07/25/21 07:53 BP 109/68 07/25/21 07:53 Pulse Ox 98 07/25/21 07:53 BMI result Body Mass Index 35.2 General: AO X 3, no acute distress Resp: CTA bilateral, no accessory muscles used CVS: S1,S2,RRR GI: soft, non tender, non distended Neuro: motor grossly intact, alert Psych: appropriate affect, appropriate insight DS: Data Data Completed and Pending Labs on day of discharge: Preliminary micro results at discharge 07/24/21 02:47 Blood Culture - Preliminary Blood - Venous No growth after 24 hours. Discharge Plan Discharge Patient Disposition: Home, Self-Care Discharge Diagnosis: dental infection vs parotits Referrals: Physician,Unknown J [Primary Care Provider] - 1 Week Discharge Medications: New amoxicillin-pot clavulanate 875-125 mg tablet 1 tab PO Q12H Qty: 14 0RF Continued ergocalciferol (vitamin D2) 10 mcg (400 unit) Tablet 10 mcg PO DAILY 0RF Discharge Orders: Discharge Order (Routine); Ordered 07/25/21 Ordered By: Parker Arteaga Diet: advance to usual diet Activity on Discharge: As tolerated Stand Alone Forms: Patient Portal Discharge page Care Plan Goals: recovery Health Concerns: facial infection Plan of Treatment: 7 days augmentin, follow up with dentist Assessment: see above
[2021-07-25 11:25] VITALS: BP 134/69; PULSE 72; RESP 12; TEMP 36.4; O2SAT 97
== END 2021-07-25 11:47 | disposition home or self-care (01) | DRG 115 ==
LOC: HO.ED 07-24 02:30 → HO.EDOVER 07-24 04:24 → HO.S3 07-24 12:32
PROVIDERS: Admitting Provider Hospitalist; Emergency Provider Student in an Organized Health Care Education/Training Program; Visit Provider Internal Medicine
DX: K11.21 Acute sialoadenitis (principal); J06.0 Acute laryngopharyngitis; K02.9 Dental caries, unspecified; Z20.822 Contact with and (suspected) exposure to COVID-19; Z79.899 Other long term (current) drug therapy
CPT/HCPCS: 36415; 70490; 80048; 80053; 83605; 84702; 85025; 87040; 87502; 87635; 96365; 96375; 99218; 99285; J1100; J1650; J1885

== ENCOUNTER 2021-09-20 11:41 | Emergency (ER) | payer MEDICAID, SELFPAY ==
--- NOTE | ~2021-09-20 | CT_ITS ---
EXAMINATION: CT SOFT TISSUE NECK WITHOUT CONTRAST CLINICAL INFORMATION: Dental pain. Question abscess or peritonitis. COMPARISON: CT soft tissue neck without contrast 07/24/2021 TECHNIQUE: Helical imaging was performed in the axial plane with generation of coronal and sagittal reformatted images. This CT examination was performed using dose optimization techniques as appropriate, variously including the following: *Automated exposure control *Adjustment of mA and/or kV according to patient size (this includes techniques or standardized protocols for targeted exams where dose is matched to indication/reason for exam; i.e. extremities or head) *Use of iterative reconstruction technique DLP: 740 mGy-cm FINDINGS: There is a fat stranding seen in the left parapharyngeal/submandibular, inferior to parotid gland and left premaxillary space similar previous study. Small shotty lymph nodes are seen in bilateral neck without enlargement and unchanged. The parotid glands are homogeneous in attenuation. The submandibular glands are normal. No contour abnormality or pathologic enhancement is seen within the oral cavity or pharyngeal mucosal space. The laryngeal structures are normal. . The carotid sheath are symmetrical and lack of IV contrast for further evaluation. No extra mucosal soft tissue mass or fluid collection is seen. No retropharyngeal fluid collection is seen. The thyroid gland is normal. The superior mediastinum is unremarkable. The lung apices are clear. The mastoid air cells and visualized portions of the paranasal sinuses are well-aerated. The temporomandibular joints are symmetrical and normal. There is an impacted lower left molar tooth no periapical cyst visualized. No osseous abnormalities are seen. The imaged portions of the brain parenchyma are unremarkable. CT/CT soft tissue neck wo con IMPRESSION: Mild fat stranding left parapharyngeal space adjacent to the submandibular gland, inferior and anterior to the parotid gland, similar to previous study 07/24/2021.. No focal lesion, abscess or mass seen. The salivary glands is stable. There is an impacted left lower molar tooth.. No periapical cyst or disease or erosive changes.
[2021-09-20 13:43] VITALS: BP 130/83; PULSE 76; RESP 18; TEMP 36.5; O2SAT 98; BMI 33.4
--- NOTE | 2021-09-20 15:18 | ED_ITS ---
HPI - Dental/Oral General Chief complaint: Dental/Oral <Nainamaria dolores Meneses CNP - Last Filed: 09/20/21 18:38> Stated complaint: pericoronitis sent by [facility] <Naina Meneses CNP - Last Filed: 09/20/21 18:38> Time Seen by Provider: 09/20/21 14:12 <Naina Meneses CNP - Last Filed: 09/20/21 18:38> Source: patient <Naina Mckeondarby Meneses CNP - Last Filed: 09/20/21 18:38> Mode of arrival: ambulatory <Naina Mary Meneses CNP - Last Filed: 09/20/21 18:38> Limitations: language barrier (Jordanian-speaking medical dir utilized) <Nainajose Meneses CNP - Last Filed: 09/20/21 18:38> History of Present Illness HPI Narrative: Patient presents emergency department by referral of her dentist. She was evaluated at the [facility] 2 days for persistent left lower posterior dental pain. Over the past 2 days she has worsening of her symptoms, and inability to open her mouth. States she was advised to come to the emergency department to determine whether IV antibiotics are required due to severe infection. Denies fevers, chills, chest pain, palpitations, shortness of breath, difficulty breathing, pain to her neck. <Nainajose Meneses CNP - Last Filed: 09/20/21 18:38> Related Data Home medications: Home Medications Medication Instructions Recorded Confirmed ergocalciferol (vitamin D2) 10 mcg 10 mcg PO DAILY 07/24/21 07/24/21 (400 unit) tablet Previous Rx's Medication Instructions Recorded amoxicillin 875 mg-potassium 1 tab PO Q12H #14 tabs 07/25/21 clavulanate 125 mg tablet amoxicillin 875 mg-potassium 1 tab PO Q12H 7 days #14 tabs 09/20/21 clavulanate 125 mg tablet <Nainamaria dolores Meneses CNP - Last Filed: 09/20/21 18:38> Allergies/adverse reactions: Allergies Allergy/AdvReac Type Severity Reaction Status Date / Time No Known Allergies Allergy Verified 09/20/21 13:43 [No Known Allergies*] <Naina Meneses CNP - Last Filed: 09/20/21 18:38> Review of Systems Review of Systems: Constitutional : No Fever, No Chills, No changes in PO intake, No difficulty speaking,? no recent dental procedure, positive heat or cold intolerance while eating, no recent face trauma, ENT/Mouth : No swallowing difficulty, no change in voice, positive jaw pain, positive facial swelling, no drooling, positive trismus, no bleeding, no throat swelling, no lacerations, no tongue swelling, gum swelling, Eyes: No Eye Pain, No periorbital Swelling Cardiovascular : No Chest Pain, No SOB Respiratory : No Cough, No Sputum, No Wheezing, No Smoke Exposure, No Dyspnea Gastrointestinal : No Nausea, No Vomiting, No Diarrhea Genitourinary : No Dysuria Musculoskeletal : No Myalgias Skin : No rash, no facial swelling or redness, Neuro : No Weakness, No Numbness, No Headache <Naina Meneses CNP - Last Filed: 09/20/21 18:38> Yes all other systems are reviewed and are negative <Naina Meneses CNP - Last Filed: 09/20/21 18:38> [facility] Past Medical History Attestation statement: The following information was validated with the patient. <Naina Meneses CNP - Last Filed: 09/20/21 18:38> Source: old records reviewed <Naina Meneses CNP - Last Filed: 09/20/21 18:38> Family History Family History: Family History Mother Diabetes High blood pressure Father High blood pressure Diabetes <Naina Meneses CNP - Last Filed: 09/20/21 18:38> Social History Social History: Social History Household Members: Family Housing: Apartment Alcohol intake: never Patient Tobacco Use Status: Never used Tobacco Second Hand Smoke Exposure: No Advance Directives: No Advance Directives Information Provided: No service: No Current occupational status: employed <Naina Meneses CNP - Last Filed: 09/20/21 18:38> Physical Exam Vital Signs: Vital Signs: Last Vital Signs Temp 97.7 F 09/20/21 13:43 Pulse 76 09/20/21 13:43 Resp 18 09/20/21 13:43 BP 130/83 09/20/21 13:43 Pulse Ox 98 09/20/21 13:43 O2 Del Method 09/20/21 13:43 BMI result Body Mass Index 33.4 Vital signs have been reviewed as normal and appeared to be correct. Blood pressure normal.? Heart rate normal.? Respiration rate normal. Temperature normal.? Oxygen saturation normal. <Naina Meneses CNP - Last Filed: 09/20/21 18:38> Vital Signs: Last Vital Signs Temp 97.7 F 09/20/21 13:43 Pulse 76 09/20/21 13:43 Resp 18 09/20/21 13:43 BP 130/83 09/20/21 13:43 Pulse Ox 98 09/20/21 13:43 O2 Del Method 09/20/21 13:43 BMI result Body Mass Index 33.4 <Pelon Parks MD - Last Filed: 09/20/21 18:36> Appearance: Alert. Oriented X3. No acute distress. Head: Normal external exam. Normocephalic. Atraumatic. Eyes: PERRLA. EOMI. Conjunctiva and sclera normal. Eyelids normal. ENT: EAC normal. TM's Normal. Pharynx normal. Uvula midline. Moist mucous membranes.? ?Positive trismus noted.? No drooling noted.? No muffled voice noted. Dentition:? Patient with poor dentition throughout with multiple dental caries.? Gingival erythema. Not consistent with peritonsillar abscess. difficult to assess for dental abscess due to limited opening of the mouth. Neck: Normal inspection. Neck supple. FROM. No adenopathy. Thyroid Normal. No meningeal signs. No neck mass noted.? Trachea midline. CVS: Normal heart rate and rhythm. Heart sound normal. No murmurs noted. Pulses normal throughout. Respiratory: No respiratory distress. Breath sounds normal. Skin: Skin warm and dry.? Normal skin color.? Extremities: Extremities exhibit normal range of motion.? Neuro: Oriented X 3.? No motor deficit.? No sensory deficit.? <Naina Meneses CNP - Last Filed: 09/20/21 18:38> Course Course Course Narrative: Patient is a 41-year-old female with a history of keratitis being sent to the emergency department from her dental provider with diagnosis of pericoronitis # 17 Due to severe cavity. She has a treatment plan for extraction of 1, 16, 17, 32 with Oral surgery. Referred to the emergency department for evaluation if need for IV antibiotics, otherwise her dental provider has sent a prescription for amoxicillin, ibuprofen, and Peridex to the pharmacy. On physical exam has facial symmetry, no significant adenopathy, soft tissues of the neck and lower jaw are soft. Obtain CBC, CMP, lactic acid, blood cultures, and CT of the soft tissue of the neck, IV clindamycin. <Naina Meneses CNP - Last Filed: 09/20/21 18:38> Reevaluation(s) Reevaluation #1: Labs are overall unremarkable, no leukocytosis. CT is pending at this time. <Naina Meneses CNP - Last Filed: 09/20/21 18:38> Time: 17:48 <Naina Meneses CNP - Last Filed: 09/20/21 18:38> Reevaluation #2: CT of the soft tissue neck reveals findings consistent with June 2021 CT mild fat stranding to the left parapharyngeal space no lesions abscesses or masses. At this time do not will be are seen indication for hospital admission or IV antibiotics. Advised patient that my recommendation would be for her to begin a course of Augmentin twice daily in addition to the ibuprofen and Peridex prescribed by dental provider. Follow-up as scheduled with dentist. Discussed worsening signs and symptoms return back to the emergency department for. All questions were answered. <Naina Meneses CNP - Last Filed: 09/20/21 18:38> Time: 18:30 <Naina Meneses CNP - Last Filed: 09/20/21 18:38> Reevaluation #3: I agree with history, physical and plan. No evidence of abscess or overwhelming infection will dc home on Augmentin twice a day <Pelon Parks MD - Last Filed: 09/20/21 18:36> Time: 18:35 <Pelon Parks MD - Last Filed: 09/20/21 18:36> MDM - Dental/Oral Medical Records Attestation: I reviewed the patient's medical records. <Naina Hernandez CLAU Meneses - Last Filed: 09/20/21 18:38> Lab Data Attestation: I reviewed the patient's lab results. <Naina Mary CLAU Meneses - Last Filed: 09/20/21 18:38> Result diagrams: : 09/20/21 17:30 09/20/21 17:30 <Naina Meneses CNP - Last Filed: 09/20/21 18:38> Labs: Lab Results 09/20/21 09/20/21 09/20/21 Range/Units 15:41 17:30 17:30 WBC 7.8 (4.8-10.8) X10*3/uL RBC 4.46 (4.20-5.50) X10*6/uL Hgb 13.0 (12.0-16.0) g/dl Hct 40.3 (37.0-47.0) % MCV 90.4 (80.0-98.0) fL MCH 29.1 (27.0-33.0) pg MCHC 32.3 (31.0-35.0) g/dl RDW 13.7 (11.0-16.0) % Plt Count 408 H (160-400) X10*3/uL MPV 9.1 L (9.4-12.3) fL Immature Gran % (Auto) 0.3 (0.0-0.4) % Neut % (Auto) 65.4 (45-73) % Lymph % (Auto) 25.0 (20-40) % [place] % (Auto) 8.5 (2-11) % Eos % (Auto) 0.5 (0-4) % Baso % (Auto) 0.3 (0-2) % Lymph # (Auto) 1.9 (1.2-4.9) X10*3/uL [place] # (Auto) 0.7 (0.1-1.2) X10*3/uL Eos # (Auto) 0.0 (0.0-0.4) X10*3/uL Baso # (Auto) 0.0 (0.0-0.2) X10*3/uL Abs Immat Gran (auto) 0.02 (0.00-0.03) X10*3/uL Absolute Neuts (auto) 5.1 (2.0-8.3) x10*3/uL Absolute Nucleated RBC 0.000 (0.0-0.012) X10*3/uL Nucleated RBC % (auto) 0.0 (0.0-0.2) /100WBC Sodium 141 (135-145) mmol/L Potassium 4.2 (3.3-5.1) mmol/L Chloride 103 (96-108) mmol/L Carbon Dioxide 28 (22-29) mmol/L Anion Gap 14 (12-20) BUN 11 (9-16) mg/dL Creatinine 0.67 (0.5-1.4) mg/dL Estim Creat Clear Calc 133.7 Estimated GFR > 60 Random Glucose 82 (60-115) mg/dL Lactic Acid 1.4 (0.5-2.0) mmol/L Calcium 9.2 (8.4-10.2) mg/dL Total Bilirubin 0.4 (0.0-1.0) mg/dL AST 16 (5-31) U/L ALT 19 (0-31) U/L Alkaline Phosphatase 89 (39-117) U/L Total Protein 7.9 (6.5-8.0) g/dL Albumin 4.1 (3.5-5.0) g/dL <Naina Meneses, [employer] MAN - Last Filed: 09/20/21 18:38> Lab Results 09/20/21 09/20/21 09/20/21 Range/Units 15:41 17:30 17:30 WBC 7.8 (4.8-10.8) X10*3/uL RBC 4.46 (4.20-5.50) X10*6/uL Hgb 13.0 (12.0-16.0) g/dl Hct 40.3 (37.0-47.0) % MCV 90.4 (80.0-98.0) fL MCH 29.1 (27.0-33.0) pg MCHC 32.3 (31.0-35.0) g/dl RDW 13.7 (11.0-16.0) % Plt Count 408 H (160-400) X10*3/uL MPV 9.1 L (9.4-12.3) fL Immature Gran % (Auto) 0.3 (0.0-0.4) % Neut % (Auto) 65.4 (45-73) % Lymph % (Auto) 25.0 (20-40) % [place] % (Auto) 8.5 (2-11) % Eos % (Auto) 0.5 (0-4) % Baso % (Auto) 0.3 (0-2) % Lymph # (Auto) 1.9 (1.2-4.9) X10*3/uL [place] # (Auto) 0.7 (0.1-1.2) X10*3/uL Eos # (Auto) 0.0 (0.0-0.4) X10*3/uL Baso # (Auto) 0.0 (0.0-0.2) X10*3/uL Abs Immat Gran (auto) 0.02 (0.00-0.03) X10*3/uL Absolute Neuts (auto) 5.1 (2.0-8.3) x10*3/uL Absolute Nucleated RBC 0.000 (0.0-0.012) X10*3/uL Nucleated RBC % (auto) 0.0 (0.0-0.2) /100WBC Sodium 141 (135-145) mmol/L Potassium 4.2 (3.3-5.1) mmol/L Chloride 103 (96-108) mmol/L Carbon Dioxide 28 (22-29) mmol/L Anion Gap 14 (12-20) BUN 11 (9-16) mg/dL Creatinine 0.67 (0.5-1.4) mg/dL Estim Creat Clear Calc 133.7 Estimated GFR > 60 Random Glucose 82 (60-115) mg/dL Lactic Acid 1.4 (0.5-2.0) mmol/L Calcium 9.2 (8.4-10.2) mg/dL Total Bilirubin 0.4 (0.0-1.0) mg/dL AST 16 (5-31) U/L ALT 19 (0-31) U/L Alkaline Phosphatase 89 (39-117) U/L Total Protein 7.9 (6.5-8.0) g/dL Albumin 4.1 (3.5-5.0) g/dL <Pelon Parks MD - Last Filed: 09/20/21 18:36> Imaging Data CT neck: Radiologist's impression: CT/CT soft tissue neck wo con IMPRESSION: Mild fat stranding left parapharyngeal space adjacent to the submandibular gland, inferior and anterior to the parotid gland, similar to previous study 07/24/2021.. No focal lesion, abscess or mass seen. ? The salivary glands is stable. ? There is an impacted left lower molar tooth.. No periapical cyst or disease or erosive changes. <Naina Meneses CNP - Last Filed: 09/20/21 18:38> Discharge Plan Discharge Clinical Impression: Dental caries, Pericoronitis <Naina Meneses CNP - Last Filed: 09/20/21 18:38> Patient Disposition: Home, Self-Care <Naina Meneses CNP - Last Filed: 09/20/21 18:38> Instructions: Adenitis (ED) <Naina Meneses CNP - Last Filed: 09/20/21 18:38> Additional Instructions: You have been given a prescription for Augmentin, this should be taken twice daily, please complete this entire course, this will be taken in addition to the ibuprofen and Peridex prescribed by your provider. Please follow-up with the dentist. Return to the emergency department any new or worsening symptoms or concerns Se le flowers recetado Augmentin, debe tomarlo dos veces al d?a, complete todo el tratamiento, se dru? adem?s del ibuprofeno y Peridex recetados por arambula proveedor. Por favor, seguimiento con el dentista. Devuelva al departamento de emergencias cualquier s?ntoma o inquietud nueva o que empeore <Naina Meneses CNP - Last Filed: 09/20/21 18:38> Prescriptions: New amoxicillin-pot clavulanate 875-125 mg tablet 1 tab PO Q12H 7 Days Qty: 14 0RF No Action ergocalciferol (vitamin D2) 10 mcg (400 unit) Tablet 10 mcg PO DAILY amoxicillin-pot clavulanate 875-125 mg tablet 1 tab PO Q12H Qty: 14 0RF <Naina Meneses CNP - Last Filed: 09/20/21 18:38> Print Language: Jordanian <Naina Meneses CNP - Last Filed: 09/20/21 18:38>
[2021-09-20 16:01] LABS: Lactic Acid 1.4 mmol/L (0.5-2.0)
[2021-09-20 17:36] LABS: MANUAL DIFF FLAG NO
[2021-09-20 17:42] LABS: Basophils Percent Auto 0.3 % (0-2); Eosinophils Percent Auto 0.5 % (0-4); Hematocrit 40.3 % (37.0-47.0); Imm Gran Abs Auto 0.02 X10*3/uL (0.00-0.03); Imm Gran Pct Auto 0.3 % (0.0-0.4); Lymphocytes Absolute Auto 1.9 X10*3/uL (1.2-4.9); Mean Corpuscular HGB Conc 32.3 g/dl (31.0-35.0); Mean Corpuscular Hemoglobin 29.1 pg (27.0-33.0); Mean Corpuscular Volume 90.4 fL (80.0-98.0); Mean Platelet Volume 9.1 fL (9.4-12.3); Monocytes Absolute Auto 0.7 X10*3/uL (0.1-1.2); Monocytes Percent Auto 8.5 % (2-11); Neutrophils Absolute Auto 5.1 x10*3/uL (2.0-8.3); Neutrophils Percent Auto 65.4 % (45-73); Platelet Count 408 X10*3/uL (160-400); Red Blood Count 4.46 X10*6/uL (4.20-5.50); Red Cell Distribution Width 13.7 % (11.0-16.0); White Blood Count 7.8 X10*3/uL (4.8-10.8)
--- NOTE | 2021-09-20 17:43 | PC.NURSE ---
20g IV Access established in left AC. Labs drawn and sent for analysis. Awaiting results.
[2021-09-20 18:02] LABS: Alanine Aminotransferase 19 U/L (0-31); Albumin Level 4.1 g/dL (3.5-5.0); Alkaline Phosphatase 89 U/L (39-117); Anion Gap 14 (12-20); Aspartate Amino Transferase 16 U/L (5-31); Bilirubin Total 0.4 mg/dL (0.0-1.0); Blood Urea Nitrogen 11 mg/dL (9-16); Calcium 9.2 mg/dL (8.4-10.2); Carbon Dioxide 28 mmol/L (22-29); Chloride 103 mmol/L (96-108); Creatinine Clr Calc Pharmacy 133.7; Estimated Glomerular Filt Rate > 60; Glucose Random 82 mg/dL (60-115); Potassium 4.2 mmol/L (3.3-5.1); Sodium 141 mmol/L (135-145); Total Protein 7.9 g/dL (6.5-8.0)
[2021-09-20] MEDS: Clindamycin Phosphate/D5W 300 MG/50 ML PIGGYBACK 100 MG IV (18:59)
== END 2021-09-20 19:46 | disposition home or self-care (01) ==
PROVIDERS: Nurse Practitioner Family; Emergency Provider Emergency Medicine
DX: K05.30 Chronic periodontitis, unspecified (principal); K02.9 Dental caries, unspecified; K08.89 Other specified disorders of teeth and supporting structures
CPT/HCPCS: 36415; 70490; 80053; 83605; 85025; 87040; 96365; 99283; 99284

== ENCOUNTER 2022-04-06 09:24 | Outpatient (REF) | payer OTHER, SELFPAY ==
[2022-04-06 12:06] LABS: Alanine Aminotransferase 17 U/L (0-31); Albumin Level 3.9 g/dL (3.5-5.0); Alkaline Phosphatase 90 U/L (39-117); Anion Gap 16 (12-20); Aspartate Amino Transferase 15 U/L (5-31); Bilirubin Total 0.3 mg/dL (0.0-1.0); Blood Urea Nitrogen 11 mg/dL (9-16); Carbon Dioxide 25 mmol/L (22-29); Chloride 105 mmol/L (96-108); Cholesterol 228 mg/dL; Estimated Glomerular Filt Rate > 60; Glucose Fasting 92 mg/dL (60-99); HDL Cholesterol 53 mg/dL; LDL Cholesterol Calculated 162 mg/dl; Potassium 4.7 mmol/L (3.3-5.1); Sodium 141 mmol/L (135-145); Thyroid Stimulating Hormone 3.52 uIU/mL (0.32-4.0); Total Protein 7.1 g/dL (6.5-8.0); Triglycerides 69 mg/dL; Vitamin D 25-OH Total 20.1 ng/mL (>30)
== END 2022-04-06 09:25 | disposition home or self-care (01) ==
LOC: HO.LAB 09:24
PROVIDERS: PCP Internal Medicine; Visit Provider Internal Medicine
DX: Z00.00 Encounter for general adult medical examination without abnormal findings (principal); E66.9 Obesity, unspecified; Z68.37 Body mass index [BMI] 37.0-37.9, adult; E55.9 Vitamin D deficiency, unspecified; E78.5 Hyperlipidemia, unspecified
CPT/HCPCS: 36415; 80053; 80061; 82306; 84443

== ENCOUNTER 2022-06-07 09:14 | Outpatient (REF) | payer OTHER, SELFPAY ==
--- NOTE | ~2022-06-07 | MM_ITS ---
EXAMINATION: MM SCREENING DIGITAL BREAST TOMOSYNTHESIS, BILATERAL CLINICAL INFORMATION: Screening. Asymptomatic. Age 41. [place] and [place] longer available. No known family history breast cancer. The lifetime risk of breast cancer based on the Tyrer-Cuzick Model is 7%. COMPARISON: None (current study represents new baseline exam). TECHNIQUE: Digital breast tomosynthesis is performed in both the craniocaudal and mediolateral oblique views along with computer-aided detection (CAD). Synthesized 2D images are generated from the tomosynthesis. FINDINGS: There are scattered areas of fibroglandular density (ACR BI-RADS breast composition Category b). There is a benign-appearing smooth nodule anterior upper outer left breast under 1 cm, 3.5 cm from nipple. As this represents new baseline, patient will be recalled for targeted ultrasound to fully characterize. The remainder the breasts show no significant mass or architectural abnormality. No abnormal calcifications. The axilla and skin contours are unremarkable. MM/MM tomosynthesis screening BI IMPRESSION: Left: -Benign-appearing smooth nodule anterior upper outer breast. Right: -No mammographic evidence of malignancy. ASSESSMENT: BI-RADS 0: Incomplete - Need Additional Imaging Evaluation RECOMMENDATION: 1. Targeted ultrasound left breast. 2. Radiology department staff will contact the patient for additional imaging. This patient's information was entered into a reminder system with a target due date for their next mammogram.
== END 2022-06-07 09:15 | disposition home or self-care (01) ==
LOC: HO.MAMMO 09:14
PROVIDERS: Visit Provider Internal Medicine
DX: Z12.31 Encounter for screening mammogram for malignant neoplasm of breast (principal)
CPT/HCPCS: 77063; 77067

== ENCOUNTER 2022-06-16 08:10 | Outpatient (REF) | payer OTHER, SELFPAY ==
--- NOTE | ~2022-06-16 | MM_ITS ---
EXAMINATION: MM DIAGNOSTIC DIGITAL BREAST TOMOSYNTHESIS, LEFT US TARGETED BREAST, LEFT CLINICAL INFORMATION: Left breast nodule COMPARISON: Mammography: 06/07/2022 TECHNIQUE: Digital breast tomosynthesis is performed. 2D images are generated from the tomosynthesis. The following views are obtained: Spot compression views in craniocaudal and mediolateral oblique projections. FINDINGS: There are scattered areas of fibroglandular density (ACR BI-RADS breast composition Category b). The additional views on mediolateral oblique projection demonstrate a well-circumscribed approximately 6 x 4 x 7 mm density with some mild lobulation and question of a fatty cleft on the craniocaudal view. Adjacent to this, is a 2 mm rounded, smoothly marginated density which could represent a vessel on end versus adjacent nodule. Targeted ultrasound evaluation of the left breast was then performed with no abnormal cystic or solid mass being identified and no region of abnormal distal sound shadowing being seen. Recommend 6 month follow-up left breast mammography to ensure stability. Results are discussed with the patient at time of visit. MM/MM tomosynthesis added views L IMPRESSION: Left breast density as described which may represent a lymph node with no definite ultrasound correlate being seen. Recommend 6 month follow-up left breast mammogram. ASSESSMENT: BI-RADS 3: Probably Benign RECOMMENDATION: Diagnostic mammography in 6 months. This patient's information was entered into a reminder system with a target due date for their next mammogram.
[2022-06-18 23:44] LABS: TS Negative Control Passed; TS Panel A 0; TS Panel B 0; TS Positive Control Passed; TSpotTB Negative (Negative)
== END 2022-06-16 08:11 | disposition home or self-care (01) ==
LOC: HO.MAMMO 08:10
PROVIDERS: PCP Internal Medicine; Visit Provider Internal Medicine
DX: Z11.1 Encounter for screening for respiratory tuberculosis (principal); R92.8 Other abnormal and inconclusive findings on diagnostic imaging of breast
CPT/HCPCS: 36415; 76642; 77061; 77065; 86481

== ENCOUNTER 2023-02-02 10:27 | Outpatient (REF) | payer OTHER, SELFPAY ==
--- NOTE | ~2023-02-02 | MM_ITS ---
EXAMINATION: MM DIAGNOSTIC DIGITAL BREAST TOMOSYNTHESIS, LEFT CLINICAL INFORMATION: First 6 month follow-up of left breast anterior slightly lateral ovoid density measuring up to 1.0 cm with mild lobulation and presence of a fatty hilum. Was not seen on ultrasound. COMPARISON: Mammography: 06/07/2022, 06/16/2022 TECHNIQUE: Digital breast tomosynthesis is performed in the following views: Full-field 3-D left CC and left MLO views, as well as a spot compression 3-D left cc view. FINDINGS: There are scattered areas of fibroglandular density (ACR BI-RADS breast composition Category b). There is a stable lobular mass with a small fatty hilum in the slightly upper slightly lateral left breast anterior one third, unchanged from the prior exam and most likely an incidental lymph node. This is extremely difficult to perceive on the CC view. It remains probably benign. No additional abnormal findings in the left breast. MM/MM tomosynthesis diagnostic LT IMPRESSION: There are no significant changes from prior study. Stable probably benign incidental lymph node in the anterior left breast. 6 month interval mammography recommended to ensure stability. ASSESSMENT: BI-RADS BI-RADS 3 - Probably benign finding(s) - 6 month follow-up suggested RECOMMENDATION: 6 Month F/U Results were provided to the patient at time of visit by the technologist. This patient's information was entered into a reminder system with a target due date for their next mammogram.
== END 2023-02-02 10:28 | disposition home or self-care (01) ==
LOC: HO.MAMMO 10:27
PROVIDERS: Visit Provider Internal Medicine
DX: R92.2 Inconclusive mammogram (principal)
CPT/HCPCS: 77061; 77065

== ENCOUNTER → 2023-02-02 10:30 | Outpatient (BNV) | payer OTHER, SELFPAY | PROVIDERS: Visit Provider Radiology Diagnostic Radiology | DX: R92.2 Inconclusive mammogram (principal) | CPT/HCPCS: 77061; 77065 ==

== ENCOUNTER 2023-04-09 16:33 | Outpatient (AMB) | payer OTHER, SELFPAY ==
--- NOTE | 2023-04-09 16:45 | MHC.PC.OV ---
Vital Signs 04/09/23 16:46 Height 5 ft 8 in Weight 241 lb BMI 36.6 BP 130/82 Blood Pressure Location Lt brachial Position Sitting Intake Visit Reasons: PE Intake Note: Patient here for a physical exam Consulting Sme Required: No Accompanied by: Self / Same As Patient Allergies No Known Allergies [No Known Allergies*] Allergy (Verified 04/09/23 17:02) Medication List - Last Reconciled 04/09/23 by Gabi Andrews MD No Known Home Meds Tobacco use date assessed: 04/09/23 Dental Screening Dental Screen Date: 04/09/23 Did you have a dental visit in the last 12 months?: Yes Did you have a dental problem in the last 6 months where you did not have access to dental care?: No Was dental information given to patient?: Patient has dentist HPI HPI Comments History of Present Illness Details This is a 42-year-old female with mild major depression that comes for her physical exam. Mammogram done. Last Pap smear was 2016 and was referred to OBGYN. Depression has been in remission and she declines the need for treatment. Her BMI is 36.6 and was advised to diet and exercise to reach BMI goal less than 30. No chest pain or shortness of breath. No fever or cough. No change of bowel or bladder habits. [facility] Surgical History History of wisdom tooth extraction Family History Mother Diabetes High blood pressure Father High blood pressure Social History Household Members: Family Housing: Apartment Alcohol intake: never Patient Tobacco Use Status: Never used Tobacco e-Cigarette/Vaping Use: Never Used Second Hand Smoke Exposure: No service: No Current occupational status: unemployed Current occupational exposures/hazards: No Cognitive needs: No Hearing needs: No Vision needs: No Questionnaire PHQ-9 Over the last 2 weeks, how often have you been bothered by any of the following problems? 1. Little interest or pleasure in doing things: several days 2. Feeling down, depressed, or hopeless: several days 3. Trouble falling or staying asleep, or sleeping too much: not at all 4. Feeling tired or having little energy: not at all 5. Poor appetite or overeating: several days 6. Feeling bad about yourself - or that you are a failure or have let yourself or your family down: not at all 7. Trouble concentrating on things, such as reading the newspaper or watching television: not at all 8. Moving or speaking so slowly that other people could have noticed. Or the opposite - being so fidgety or restless that you have been moving around a lot more than usual: several days 9. Thoughts that you would be better off or of hurting yourself in some way: not at all Total score: 4 Depression Screening Interpretation: Positive Depression Screening Follow-up: Existing condition Depression Screening Done: Yes 81750 - PHQ-9 Billing: Yes Source: Developed by Drs. Juan Johnson, Kathy Thornton, Steve Edmondson and colleagues, with an educational annie from [employer]. Thrive Questionnaire Date Thrive assessed: 04/09/23 I am a: Patient What is your living situation today?: I have a steady place to live Within the past 12 months, did the food you bought not last and you didn't have the money to get more?: Never true Within the past 12 months, did you worry whether your food would run out before you got money to buy more?: Never true Do you have trouble paying for medicines?: No Do you have trouble getting transportation to medical appointments?: No Do you have trouble paying your heating and electricity bill?: No Do you have trouble taking care of your child, family member or friend?: No Do you have trouble with day-to-day activities such as bathing, preparing meals, shopping, managing finances, etc.?: No Are you currently unemployed and looking for a job?: No Are you interested in more education?: No Please select the resources that you would like help with: None Currently or been in a relationship where the following occur: no concerns reported THRIVE Score: 0 AUDIT C Alcohol Use Questionnaire (AUDIT-C) 1. How often do you have a drink containing alcohol?: Never Total Score: 0 FRANDY-7 AMB Questionnaire FRANDY-7 Date FRANDY - 7 assessed: 04/09/23 Feeling nervous, anxious, or on edge: 1 = Several days Not being able to stop or control worryin = Not at all Worrying too much about different things: 1 = Several days Trouble relaxin = Not at all Being so restless that it is hard to sit still: 0 = Not at all Becoming easily annoyed or irritable: 2 = More than half the days Feeling afraid as if something awful might happen: 0 = Not at all Total FRANDY-7 score (0-4 normal; 5-9 mild; 10-14 moderate; 15-21 severe): 4 Source: Developed by Drs. Juan Johnson, Kathy Thornton, Steve Edmondson and colleagues, with an educational annie from [employer]. FRANDY-7 Assessment Billing FRANDY-7 Assessment Tool: FRANDY-7 Assessment 25685 Review of Systems Const All systems reviewed & are unremarkable except as noted in HPI and below Eyes Reports no additional complaints, Denies change in vision and Denies other visual disturbances Card Denies chest pain at rest, Denies chest pain with activity, Denies edema, Denies irregular heart rhythm, Denies claudication, Denies dyspnea, Denies dyspnea on exertion, Denies orthopnea, Denies paroxysmal nocturnal dyspnea and Denies slow heart rate Resp Denies cough, Denies dyspnea and Denies dyspnea on exertion GI Denies abdominal pain, Denies change in bowel habits, Denies excessive flatus, Denies nausea and Denies vomiting Denies urinary incontinence, Denies urinary hesitancy and Denies urinary urgency Musc Denies abnormal gait, Denies atrophy, Denies deformity and Denies limited range of motion Skin/Breast Denies bleeding lesions, Denies changing lesions and Denies rash Neuro Denies abnormal gait, Denies behavioral changes, Denies confusion and Denies lack of coordination Psych Denies behavioral changes and Denies confusion Physical exam (Primary Care) Vital Signs: Last Vital Signs BP 130/82 04/09/23 16:46 BMI result Body Mass Index 36.6 Tobacco/Smoking Status: Tobacco use Status Tobacco use date assessed 04/09/23 04/09/23 16:54 Patient Tobacco Use Status Never used Tobacco 04/09/23 16:54 e-Cigarette/Vaping Use Never Used 04/09/23 16:54 PHQ-9: PHQ-9 Score PHQ-9: Total score 4 04/09/23 16:54 Depression Screening Interpretation: Positive Depression Screening Follow-up: Existing condition Thrive Assessment: Date of Thrive Assessment Date Thrive assessed 04/09/23 04/09/23 16:54 Currently or been in a relationship where the following occur: no concerns reported Const General: No confusion Orientation/consciousness: patient oriented x3 and No confusion HENMT Head: Yes normal to inspection, Yes normocephalic and Yes atraumatic Ears: external ears normal Eyes General: appearance normal, both eyes and all related structures Eyelids: Yes eyelids normal Conjunctivae: conjunctivae normal Neck Neck: Yes normal visual inspection and Yes supple Resp Effort & Inspection: normal respiratory effort Auscultation: clear to auscultation bilaterally Cardio Jugular venous distension: no JVD Rate: regular rate Rhythm: regular rhythm Heart sounds: S1 normal heart sound present and S2 normal heart sound present GI Inspection: Yes normal to inspection Palpation (GI): Soft to palpation and nontender Auscultation: normal bowel sounds Skin General skin exam: no rashes or lesions noted Neuro General: patient oriented x3, no focal motor deficits and No confusion Extrem General: Yes full ROM Psych Appearance: grossly normal Assessment and Plan Assessment & Plan (1) Physical exam: Code(s): Z00.00 - Encounter for general adult medical examination without abnormal findings Plan: Repeat in a year. (2) Mild major depression: Code(s): F32.0 - Major depressive disorder, single episode, mild Plan: In remission. Orders: Orders Lipid Panel Today E78.5 - Hyperlipidemia, unspecified Comprehensive [place]. Panel Fast Today Z00.00 - Encounter for general adult medical examination without abnormal findings Referrals [facility] Referral Z12.4 - Encounter for screening for malignant neoplasm of cervix Coding Level of Care Code Est Pt Prev Care 40-64y(03105) Diagnoses Physical exam Z00.00 Mild major depression F32.0 Additional Codes FRANDY-7 Assessment Billing - FRANDY-7 Assessment Tool: FRANDY-7 Assessment 04232 ([id number]) Time Spent (min) 33
[2023-04-09 16:46] VITALS: BP 130/82; BMI 36.6
== END 2023-04-09 17:12 | disposition home or self-care (01) ==
PROVIDERS: Visit Provider Internal Medicine
DX: Z00.00 Encounter for general adult medical examination without abnormal findings (principal); F32.0 Major depressive disorder, single episode, mild; Z68.36 Body mass index [BMI] 36.0-36.9, adult
CPT/HCPCS: 99396

== ENCOUNTER 2023-05-18 08:54 | Outpatient (REF) | payer OTHER, SELFPAY ==
[2023-05-18 10:07] LABS: Alanine Aminotransferase 23 U/L (0-31); Albumin Level 3.9 g/dL (3.5-5.0); Alkaline Phosphatase 90 U/L (39-117); Anion Gap 11 (12-20); Aspartate Amino Transferase 18 U/L (5-31); Bilirubin Total 0.4 mg/dL (0.0-1.0); Blood Urea Nitrogen 15 mg/dL (9-16); Calcium 9.6 mg/dL (8.4-10.2); Carbon Dioxide 28 mmol/L (22-29); Chloride 104 mmol/L (96-108); Cholesterol 216 mg/dL (<200); Estimated Glomerular Filt Rate > 60; Glucose Fasting 101 mg/dL (60-99); HDL Cholesterol 68 mg/dL (>40); LDL Cholesterol Calculated 134 mg/dL (<100); Potassium 3.9 mmol/L (3.3-5.1); Sodium 139 mmol/L (135-145); Total Protein 7.8 g/dL (6.5-8.0); Triglycerides 70 mg/dL (<150)
== END 2023-05-18 08:55 | disposition home or self-care (01) ==
LOC: HO.LAB 08:54
PROVIDERS: PCP Internal Medicine; Visit Provider Internal Medicine
DX: Z00.00 Encounter for general adult medical examination without abnormal findings (principal); E78.5 Hyperlipidemia, unspecified
CPT/HCPCS: 36415; 80053; 80061

== ENCOUNTER 2023-06-12 11:23 | Outpatient (AMB) | payer OTHER, SELFPAY ==
[2023-06-12 11:36] VITALS: BP 128/82; BMI 37.4
--- NOTE | 2023-06-12 11:36 | MHC.OFFVIS ---
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 No complaints. Last Pap/HPV was ascus/HPV negative in 05/12 Last Mammogram was BI-RADS 3 in 02/17, the recommendation was to repeat in 6 months [facility] Surgical History History of wisdom tooth extraction Family History Mother Diabetes High blood pressure Father High blood pressure Prostate cancer Family/Other Breast cancer Social History Household Members: Spouse and Family Housing: Apartment Alcohol intake: never Patient Tobacco Use Status: Never used Tobacco e-Cigarette/Vaping Use: Never Used Second Hand Smoke Exposure: No service: No Current occupational status: unemployed Current occupational exposures/hazards: No Sexually active: No Sexual orientation: Straight/Heterosexual Gender identity: Female Cognitive needs: No Hearing needs: No Vision needs: No Female Reproductive History Menstrual Total pregnancies: 4 Full term: 2 Number of Living Children: 2 Ab spontaneous: 2 Date of Mammogram: 02/02/23 Review of Systems Const All systems reviewed & are unremarkable except as noted in HPI and below Card Reports as per HPI Resp Reports as per HPI GI Reports as per HPI and Reports no additional complaints Reports as per HPI Physical Exam Vital Signs: Last Vital Signs BP 128/82 06/12/23 11:36 BMI result Body Mass Index 37.4 Const General: cooperative, healthy appearing and comfortable Chest Chest palpation & inspection: normal inspection of the chest and normal palpation of entire chest wall Breast/axilla inspection: normal inspection of the breasts and normal inspection of the axillae Breast/axilla palpation: normal palpation of the breasts, normal palpation of the axillae and no axillary lymphadenopathy Resp Effort & Inspection: normal respiratory effort Auscultation: clear to auscultation bilaterally Percussion: percussion normal Cardio Palpation: normal PMI Rate: regular rate Rhythm: regular rhythm Heart sounds: no murmurs and no rubs Peripheral pulses: Peripheral pulses 2+ throughout GI Inspection: Yes normal to inspection Palpation (GI): Soft to palpation, nontender, no guarding, not rigid and No hepatosplenomegaly present Percussion: Yes normal to percussion Auscultation: normal bowel sounds Rectal Exam - Female: deferred General: Yes bladder normal to palpation External Female Exam: No lesion Speculum Exam - Vagina: normal appearance of the vagina, normal palpation, normal vaginal discharge and not erythematous Speculum Exam - Cervix: normal appearance of the cervix and normal palpation Bimanual exam- vagina & uterus: normal bimanual exam, normal palpation, uterine size normal, bladder normal to palpation, consistency normal and normal palpation Bimanual Exam- Adnexa, other: normal adnexae, no masses and no tenderness Assessment & Plan Assessment & Plan (1) Well woman exam: Code(s): Z01.419 - Encounter for gynecological examination (general) (routine) without abnormal findings Plan: Cotesting done. Mammogram scheduled in 08/19 Counseled the patient about the recommended dietary allowance of 1000 mg of Calcium & 600 IU of vitamin D. The patient was instructed to perform monthly self-breast exams and to schedule an annual exam in a year; All questions answered and the patient verbalized understanding. Instructed the patient to schedule annual exam in a year Coding Level of Care Code New Pt Prev Care 40-64y(88201) Diagnoses Well woman exam Z01.419
== END 2023-06-12 12:30 | disposition home or self-care (01) ==
PROVIDERS: Visit Provider Obstetrics & Gynecology
DX: Z01.419 Encounter for gynecological examination (general) (routine) without abnormal findings (principal)
CPT/HCPCS: 99386

== ENCOUNTER 2023-06-12 11:23 | Outpatient (REF) | payer OTHER, SELFPAY ==
[2023-06-14 23:29] LABS: HPV mRNA E6/E7 rflx Not Detected (Not Detected)
== END 2023-06-12 11:24 | disposition home or self-care (01) ==
LOC: HO.LNP 11:23
PROVIDERS: Visit Provider Obstetrics & Gynecology
DX: Z01.419 Encounter for gynecological examination (general) (routine) without abnormal findings (principal); Z11.51 Encounter for screening for human papillomavirus (HPV)
CPT/HCPCS: 87624; 88142; 99386

== ENCOUNTER 2024-03-19 09:14 | Emergency (ER) | payer OTHER, SELFPAY ==
[2024-03-19 09:54] VITALS: BP 131/91; PULSE 82; RESP 18; TEMP 37.1; O2SAT 98; BMI 40.1
--- NOTE | 2024-03-19 09:55 | ED.NAVMDI ---
HPI - Nausea/Vomiting/Diarrhea General Chief complaint: Nausea/Vomiting/Diarrhea Stated complaint: Sick Time Seen by Provider: 03/19/24 09:59 Source: patient, old records reviewed and field case manager Mode of arrival: ambulatory Limitations: no limitations History of Present Illness ED Provider: DEVAN TOLEDO Narrative: 43 yo female with PMH of depression, obesity, here with c/o n/v/d since Sunday. No travel, abx use, no sick contacts. no, cough or belly pain. She c/o fever Sunday. Her son is also ill. She last vomited yesterday. NO severe pain, bloody stools. MD elicited complaint: nausea, vomiting and diarrhea Onset (ago): day(s) (few) Description of vomiting: food contents and watery Description of diarrhea: watery Associated nausea: Yes Associated abdominal pain: No Severity: moderate Exacerbating factors: eating Relieving factors: none Context: sick contacts Associated symptoms: loss of appetite, malaise and nausea/vomiting Related Data Previous Rx's ?Medication ?Instructions ?Recorded ondansetron 4 mg disintegrating 4 mg PO Q8H PRN nausea and 03/19/24 tablet vomiting #20 tabs Allergies Allergy/AdvReac Type Severity Reaction Status Date / Time No Known Allergies Allergy Verified 03/19/24 09:55 [No Known Allergies*] Review of Systems Review of Systems: Constitutional : No Weight loss, No Fever, No Chills ENT/Mouth : No sore throat, No Rhinorrhea Eyes: No Swelling, No Redness Cardiovascular : No Chest Pain, No SOB, NoEdema Respiratory : No Cough, No Sputum, No Wheezing Gastrointestinal : Positive Nausea, Positive Vomiting, positive Diarrhea, no abdominal Pain, No Hematochezia, No Melena Genitourinary : No Dysuria, No Urinary Frequency, No Hematuria, No Urgency Musculoskeletal : No joint pain, No Myalgias, No Joint Swelling Skin : No Skin Lesions, No rash Neuro : No Weakness, No Numbness, No Dizziness, No Headache All other systems reviewed and are negative. Gastrointestinal: Gastrointestinal: Reports nausea PMFSH Past Medical History Surgical History History of wisdom tooth extraction Family History Family History Mother Diabetes High blood pressure Father High blood pressure Prostate cancer Family/Other Breast cancer Social History Social History Household Members: Spouse and Family Housing: Apartment Alcohol intake: never Patient Tobacco Use Status: Never used Tobacco e-Cigarette/Vaping Use: Never Used Second Hand Smoke Exposure: No Do you have a plan to hurt others: No Plan service: No Current occupational status: unemployed Current occupational exposures/hazards: No Sexual orientation: Straight/Heterosexual Gender identity: Female Cognitive needs: No Hearing needs: No Vision needs: No Physical Exam Vital Signs: Vital Signs: Last Vital Signs Temp 98.8 F 03/19/24 09:54 Pulse 82 03/19/24 09:54 Resp 18 03/19/24 09:54 BP 131/91 H 03/19/24 09:54 Pulse Ox 98 03/19/24 09:54 O2 Del Method Room Air 03/19/24 09:54 BMI result Body Mass Index 40.1 Appearance: Alert. Oriented X3. No acute distress. Eyes: Pupils equal, round and reactive to light. ENT: Pharynx normal. MMM Neck: Normal inspection. Neck supple. CVS: Normal heart rate and rhythm. Pulses normal. Respiratory: No respiratory distress. Breath sounds normal. Abdomen: Soft and nontender. Skin: Skin warm and dry. Normal skin color. Normal skin turgor. Extremities: No lower extremity edema. No calf ttp Neuro: Oriented X 3. No motor deficit. No sensory deficit. CN2-12 intact Medications Administered Discontinued Medications Generic Name Dose Route Start Last Admin Trade Name Tarasq PRN Reason Stop Dose Admin Ondansetron HCl 4 mg 03/19/24 09:56 03/19/24 09:59 Ondansetron Odt 4 Mg Tab.Rapdis TRANSLINGU 03/19/24 09:57 4 mg ONCE ONE Administration Medical Decision Making Medical Decision Making MDM Narrative: 43 yo female with PMH of depression, obesity, here with c/o n/v/d since Sunday. No travel, abx use, no, cough or belly pain. She c/o fever sunday night. At this time not toxic, will obtain basic labs, start on zofran. She has no red flags on exam including no belly pain, no vomiting in waiting room, no bloody stools her son is also sick. Will obtain basic labs and DC on zofran Differential Diagnosis Differential Diagnoses: The differential diagnosis associated with the presentation includes viral syndrome, dehydration Admission/Observation Consideration of admission/observation: Escalation of care including admission/observation considered not dehydrated not toxic appearing no abdominal pain labs reassuring Lab Data MDM Lab Attestation statement: I reviewed the patient's lab results. 03/19/24 10:38 03/19/24 10:38 Labs: Lab Results 03/19/24 Range/Units 10:38 WBC 3.1 L (4.8-10.8) X10*3/uL RBC 4.86 (4.20-5.50) X10*6/uL Hgb 13.6 (12.0-16.0) g/dl Hct 41.4 (37.0-47.0) % MCV 85.2 (80.0-98.0) fL MCH 28.0 (27.0-33.0) pg MCHC 32.9 (31.0-35.0) g/dl RDW 15.6 (11.0-16.0) % Plt Count 366 (160-400) X10*3/uL MPV 8.9 L (9.4-12.3) fL Sodium 138 (135-145) mmol/L Potassium 4.0 (3.3-5.1) mmol/L Chloride 106 (96-108) mmol/L Carbon Dioxide 26 (22-29) mmol/L Anion Gap 10 L (12-20) BUN 13 (9-16) mg/dL Creatinine 0.75 (0.5-1.4) mg/dL Estim Creat Clear Calc 112.5 Estimated GFR > 60 Random Glucose 91 (60-115) mg/dL Calcium 9.2 (8.4-10.2) mg/dL Magnesium 2.1 (1.6-2.6) mg/dL Total Bilirubin 0.3 (0.0-1.0) mg/dL Direct Bilirubin 0.1 (0.0-0.5) mg/dL AST 35 H (5-31) U/L ALT 31 (0-31) U/L Alkaline Phosphatase 78 (39-117) U/L Total Protein 8.2 H (6.5-8.0) g/dL Albumin 3.9 (3.5-5.0) g/dL Lipase 20 (8-78) U/L External Record Review External record reviewed: Outpatient record Prescription Management I considered prescription management with: Other Discharge Plan Discharge Clinical Impression: Acute viral syndrome Patient Disposition: Home, Self-Care Instructions: Viral Syndrome (ED) Additional Instructions: labs reassuring bland diet advance slowly stay hydrated return for any worsening symptoms or concerns Prescriptions: New ondansetron 4 mg tablet,disintegrating 4 mg PO Q8H PRN (Reason: nausea and vomiting) Qty: 20 0RF Stand Alone Forms: Work/School Release Print Language: Japanese
[2024-03-19] MEDS: Ondansetron ODT 4 MG TAB.RAPDIS TRANSLINGU (09:59)
[2024-03-19 10:51] LABS: Basophils Percent Auto 0.3 % (0-2); Eosinophils Absolute Auto 0.1 X10*3/uL (0.0-0.4); Eosinophils Percent Auto 1.9 % (0-4); Hematocrit 41.4 % (37.0-47.0); Hemoglobin 13.6 g/dl (12.0-16.0); Imm Gran Abs Auto 0.01 X10*3/uL (0.00-0.03); Imm Gran Pct Auto 0.3 % (0.0-0.4); Lymphocytes Absolute Auto 1.3 X10*3/uL (1.2-4.9); Lymphocytes Percent Auto 42.6 % (20-40); MANUAL DIFF FLAG SCAN; Mean Corpuscular HGB Conc 32.9 g/dl (31.0-35.0); Mean Corpuscular Volume 85.2 fL (80.0-98.0); Mean Platelet Volume 8.9 fL (9.4-12.3); Monocytes Absolute Auto 0.6 X10*3/uL (0.1-1.2); Monocytes Percent Auto 20.2 % (2-11); Neutrophils Absolute Auto 1.1 x10*3/uL (2.0-8.3); Neutrophils Percent Auto 34.7 % (45-73); Platelet Count 366 X10*3/uL (160-400); Red Blood Count 4.86 X10*6/uL (4.20-5.50); Red Cell Distribution Width 15.6 % (11.0-16.0); SCAN SMEAR FLAG 1; White Blood Count 3.1 X10*3/uL (4.8-10.8)
[2024-03-19 11:06] LABS: Alanine Aminotransferase 31 U/L (0-31); Albumin Level 3.9 g/dL (3.5-5.0); Alkaline Phosphatase 78 U/L (39-117); Anion Gap 10 (12-20); Aspartate Amino Transferase 35 U/L (5-31); Bilirubin Direct 0.1 mg/dL (0.0-0.5); Bilirubin Total 0.3 mg/dL (0.0-1.0); Blood Urea Nitrogen 13 mg/dL (9-16); Calcium 9.2 mg/dL (8.4-10.2); Carbon Dioxide 26 mmol/L (22-29); Chloride 106 mmol/L (96-108); Creatinine Clr Calc Pharmacy 112.5; Estimated Glomerular Filt Rate > 60; Glucose Random 91 mg/dL (60-115); Lipase 20 U/L (8-78); Magnesium 2.1 mg/dL (1.6-2.6); Sodium 138 mmol/L (135-145); Total Protein 8.2 g/dL (6.5-8.0)
[2024-03-19 11:15] LABS: SLIDE REVIEW VERIFIED
[2024-03-19 11:28] VITALS: BP 131/91; PULSE 82; RESP 18; TEMP 37.1; O2SAT 98
--- OUTSIDE RECORDS SUMMARY | 2024-03-19 13:14 | XMS_ITS | Clinical Summary ---
Author Organization [employer] Address [address] [place] [address] Care Team Providers Care Shingle Weaver Name Role Phone Unavailable Primary Care Provider Unavailabl e Allergies No known active allergies Medications No known medications Active Problems Problem Noted Date Diagnosed Date Periodontal disease 06/14/2022 Dental calculus 06/14/2022 Gingival bleeding 06/14/2022 Social History Tobacco Use Types Packs/Day Years Used Date Smoking Tobacco: Never Smokeless Tobacco: Never Tobacco Cessation:Counseling Given: Not Answered Alcohol Use Standard Drinks/Week Comments Never 0 (1 standard drink = 0.6 oz pur e alcohol) Comments Unknown Sex and Gender Information Value Date Recorded Sex Assigned at Female 12/26/2021 10:31 AM EDT Legal Sex Female 10:31 AM EDT Gender Identity Female 12/26/2021 10:31 AM EDT Sexual Orientation Don't know 12/26/2021 10 :31 AM EDT Last Filed Vital Signs Vital Sign Reading Time Taken Comments Blood Pressure 118/72 07/20/2022 2:06 PM EDT Pulse 68 07/20/2022 2:06 PM EDT Temperature - - Respiratory Rate - - Oxygen Saturation - - Inhaled Oxygen Concentration - - Weight - - Height - - Body Mass Index - - Plan of Treatment Health Maintenance Due Date Last Done Comments CT Colonography 1978 Colonoscopy 1978 Colorectal Cancer Screening 1978 Depression Screening 1978 FIT DNA/Cologuard 1978 FIT 1978 FOBT 1978 HIV Screening 1978 SDOH Screening 1978 Sigmoidoscopy 1978 Alcohol/Substance Use Screening 1990 Hepatitis C Screening 1996 Hepatitis B Vaccines (1 of 3 - 19+ 3-dose series) 1997 Pap Smear 08/15/1999 Cervical Cancer Screening 2008 HPV/Cotest 2008 DTaP/Tdap/Td Vaccines (2 - T d or Tdap) 08/01/2017 08/02/2007 Mammogram 2018 Dental Oral Exam 10/13/2022 04/14/2022 Dental Prophylaxis 12/15/2022 06/14/2022 Dental X-Ray: Bitewings 04/15/2023 04/14/2022 Tobacco Screening 07/21/2023 07/20/2022 COVID-19 Vaccine (1 - 2023-2 5 season) 2023 Influenza Vaccine (#1) 2023 8, 01/03/2016 Dental X-Ray: Full Mouth 04/15/2025 04/14/2022 Zoster Vaccines (1 of 2) 2028 RSV Patients and Patients Aged 60 years or older (1 - 1-dose 75+ series) 2053 HIB Vaccines Aged Out No longer eligi ble based on patient's age to complete this topic HPV Vaccines Aged Out No longer eligi ble based on patient's age to complete this topic Hepatitis A Vaccines Aged Out No long er eligible based on patient's age to complete this topic IPV Vaccines Aged Out No longer eligi ble based on patient's age to complete this topic Meningococcal Vaccine Aged Out No sumit krystal eligible based on patient's age to complete this topic Pneumococcal Vaccine: Pediatrics (0 to 5 Years) and At-Risk Patients (6 to 64 Years) Aged Out No longer eligible b ased on patient's age to complete this topic RSV under 20 months Aged Out No longe r eligible based on patient's age to complete this topic Rotavirus Vaccines Aged Out No longer eligible based on patient's age to complete this topic Procedures Procedure Name Priority Date/Time Associated Diagnosis Comments PROPHYLAXIS - ADULT Routine 06/14/2022 8 :00 AM EDT Periodontal disease Dental calculus Gingival bleeding DIAGNOSTIC - DIAGNOSTIC IMAGING - INTRAORAL - COMPREHENSIVE SERIES OF RADIOGRAPHIC IMAGES Routine 04/14/2022 10:30 AM EST COMPREHENSIVE ORAL EVALUATION - NEW OR ESTABLISHED PATIENT Routine 04/14/2022 10:30 AM EST from Last 3 Months or Most Recently Relevant to Health Maintenance Insurance [facility] MEDICAID STAND ADULT
--- OUTSIDE RECORDS SUMMARY | 2024-03-19 13:14 | XMS_ITS | Encounter Summary ---
Author Organization [employer] Address [address] [place] [address] Care Team Providers Care Turntable Man Name Role Phone Unavailable Primary Care Provider Unavailabl e Encounter Details Date Type Department Care Team (Late st Contact Info) Description 07/06/[address] [facility] ADULT DENTAL [address] [place] [address] Ramses Dayana [address] [place] [address] Social History Tobacco Use Types Packs/Day Years Used Date Smoking Tobacco: Never Smokeless Tobacco: Never Alcohol Use Standard Drinks/Week Comments Never 0 (1 standard drink = 0.6 oz pur e alcohol) Comments Unknown Sex and Gender Information Value Date Recorded Sex Assigned at Female 12/26/2021 10:31 AM EDT Legal Sex Female 10:31 AM EDT Gender Identity Female 12/26/2021 10:31 AM EDT Sexual Orientation Don't know 12/26/2021 10 :31 AM EDT COVID-19 Exposure Response Date Recorded In the last 10 days, have karissa patino been in contact with someone who was confirmed or suspected to have Coronavirus/COVID-19? No / Unsure 06/14/2022 8:03 AM EDT documented as of this encounter Plan of Treatment Not on file documented as of this encounter Visit Diagnoses Not on filedocumented in this encounter
--- OUTSIDE RECORDS SUMMARY | 2024-03-19 13:14 | XMS_ITS | Encounter Summary ---
Author Organization [employer] Address [address] [place] [address] Care Team Providers Care Dental Tech Name Role Phone Unavailable Primary Care Provider Unavailabl e Encounter Details Date Type Department Care Team (Late st Contact Info) Description 07/04/2022 Abstract [facility] ADULT DENTAL [address] [place] [address] Ramses Dayana [address] [place] [address] Social History Tobacco Use Types Packs/Day Years [...]
== END 2024-03-19 11:29 | disposition home or self-care (01) ==
PROVIDERS: Emergency Provider Emergency Medicine; PCP Internal Medicine
DX: B34.9 Viral infection, unspecified (principal); R11.2 Nausea with vomiting, unspecified; R50.9 Fever, unspecified; R19.7 Diarrhea, unspecified; Z79.899 Other long term (current) drug therapy
CPT/HCPCS: 36415; 80048; 80076; 83690; 83735; 85025; 99282; 99283

== ENCOUNTER 2024-03-31 11:04 | Emergency (ER) | payer OTHER, SELFPAY ==
[2024-03-31 11:51] VITALS: BP 147/93; PULSE 94; RESP 16; TEMP 36.9; O2SAT 98; BMI 37.3
--- NOTE | 2024-03-31 11:51 | ED.URI ---
HPI - URI/Sore Throat General Chief Complaint: Upper Respiratory Symptoms Stated Complaint: Cold symptoms Time Seen by Provider: 03/31/24 15:06 Source: patient, RN notes reviewed and old records reviewed Mode of arrival: ambulatory History of Present Illness ED Provider: Annika Whalen PA-C [facility] Narrative: 43-year-old female with a past medical history obesity, presenting to the ED complaining of upper respiratory symptoms including subjective fever, headache, cough, rhinorrhea x 3 days. States she is unable to sleep last night. Admits son was recently positive for influenza. Denies CP/SOB, travel Related Data Previous Rx's ?Medication ?Instructions ?Recorded ondansetron 4 mg disintegrating 4 mg PO Q8H PRN nausea and 03/19/24 tablet vomiting #20 tabs Allergies Allergy/AdvReac Type Severity Reaction Status Date / Time No Known Allergies Allergy Verified 03/31/24 11:54 [No Known Allergies*] Review of Systems Review of Systems: Yes all other systems are reviewed and are negative Constitutional: Constitutional: Reports as per [facility] Past Medical History Attestation statement: The following information was validated with the patient. Source: old records reviewed Surgical History History of wisdom tooth extraction Family History Family History Mother Diabetes High blood pressure Father High blood pressure Prostate cancer Family/Other Breast cancer Social History Social History Household Members: Spouse and Family Housing: Apartment Alcohol intake: never Patient Tobacco Use Status: Never used Tobacco e-Cigarette/Vaping Use: Never Used Second Hand Smoke Exposure: No Advance Directives: No Advance Directives Information Provided: No service: No Current occupational status: unemployed Current occupational exposures/hazards: No Sexual orientation: Straight/Heterosexual Gender identity: Female Cognitive needs: No Hearing needs: No Vision needs: No Physical Exam Vital Signs: Vital Signs: Last Vital Signs Temp 98.1 F 03/31/24 15:11 Pulse 90 03/31/24 15:11 Resp 18 03/31/24 15:11 BP 151/89 H 03/31/24 15:11 Pulse Ox 98 03/31/24 15:11 O2 Del Method Room Air 03/31/24 15:11 BMI result Body Mass Index 37.3 Const: General: cooperative, healthy appearing and no acute distress Orientation/consciousness: patient oriented x3 Limitations: no limitations HEENT: Head: Yes normal to inspection and Yes atraumatic Ears: hearing grossly normal bilaterally General nose exam: Normal external nose present Face and sinus: Yes normal facial exam Eyes: General: appearance normal, both eyes and all related structures EOM: EOMs intact bilaterally Neck: Neck: Yes normal visual inspection and Yes no meningeal signs Resp: Effort & Inspection: normal respiratory effort, no respiratory distress and no stridor Auscultation: clear to auscultation bilaterally, no crackles, no rhonchi and no wheezes Cardio: Rate: regular rate Heart sounds: S1 normal heart sound present and S2 normal heart sound present Skin: Rashes: no rashes Wounds: no wounds Neuro: General: patient oriented x3, tone normal and no meningeal signs Cranial nerves: Yes CN's II-XII intact bilaterally Gait exam (Neuro): Normal gait present Extrem: General: Yes normal to inspection Course Course Course Narrative: This is a Rapid Medical Exam performed in triage by Annika Whalen PA-C. Full HPI, ROS and PE to be performed by primary ED provider. 43-year-old female presenting to the ED c/o URI sx x Sunday. Son at home sick with influenza. Denies CP/SOB PE: Vital signs stable. Talking in complete sentences Plan: Viral testing 1507--COVID/flu/RSV and rapid strep negative Results discussed with patient including worrisome signs and symptoms and strict return precautions, and when to return to the emergency department. They verbalized understanding and feel safe for discharge at this time. Medical Decision Making Medical Decision Making MDM Narrative: 43-year-old female with a past medical history obesity, presenting to the ED complaining of upper respiratory symptoms including subjective fever, headache, cough, rhinorrhea x 3 days. On exam vital signs stable, NAD, nontoxic appearing, physical exam as noted above. Concern for viral illness. Rule out pneumonia. Lower suspicion for ACS/PE or CHF Plan: viral testing Please refer to course for remaining clinical decision making, interpretation of labs/imaging results, and discussions with consultants and/or family members. Differential Diagnosis Differential Diagnoses: The differential diagnosis associated with the presentation includes As above Lab Data [facility] Lab Attestation statement: I reviewed the patient's lab results. Labs: Lab Results 03/31/24 Range/Units 13:19 Influenza Type A (PCR) NEGATIVE (Negative) Influenza Type B (PCR) NEGATIVE (Negative) RSV RNA Qual (PCR) NEGATIVE (Negative) SARS-CoV-2 RNA (RT-PCR) NEGATIVE (Negative) S. pyogenes GrpA AARON Negative (Negative) Radiology Impression Discussion of test interpretation with radiology: I have reviewed the radiologist's reading. External Record Review External record reviewed: Inpatient record, Office record, Outpatient record, Prior outpatient labs, Prior outpatient radiology, Primary care record and Outside ED record Tests considered The following testing was considered but not selected: As above Prescription Management I considered prescription management with: Antiviral and Antibiotic Chronic Conditions Patient?s care impacted by: Other Social Determinants Patient?s care significantly limited by Social Determinants of Health including: Other Social Determinant of Health Discharge Plan Discharge Clinical Impression: Upper respiratory infection, Upper respiratory infection Patient Disposition: Home, Self-Care Instructions: Upper Respiratory Infection (DC) Additional Instructions: You have a virus No antibiotics are indicated at this time Make sure you are staying hydrated. Drink plenty of fluids. Rest Alternate Tylenol and Motrin at home as needed for body aches and fever Follow-up with your doctor. If symptoms persist or worsen return to the emergency department *If you are a child & not tolerating liquid or urinating for more than 6 hours, or fevers are uncontrolled with medications at home, return to the emergency department* Prescriptions: No Action ondansetron 4 mg tablet,disintegrating 4 mg PO Q8H PRN (Reason: nausea and vomiting) Qty: 20 0RF Referrals: Gabi Serna MD [Primary Care Provider] - Stand Alone Forms: Work/School Release Interventions: ED Discharge Assessment Last Done: 03/31/24 15:11 Discharge Date/Time: 03/31/24 15:13 Print Language: Martiniquais
[2024-03-31 13:32] LABS: IDNOW Serial# 08D9AD1C; Strep A Nucleic Acid Negative (Negative)
[2024-03-31 14:04] LABS: Influenza A PCR NEGATIVE (Negative); Influenza B PCR NEGATIVE (Negative); Resp Syncy Virus RNA Qual PCR NEGATIVE (Negative); SARS COV2 PCR INHOUSE NEGATIVE (Negative)
[2024-03-31 15:11] VITALS: BP 151/89; PULSE 90; RESP 18; TEMP 36.7; O2SAT 98
--- OUTSIDE RECORDS SUMMARY | 2024-03-31 16:40 | XMS_ITS | Encounter Summary ---
Author Organization [employer] Address [address] [place] [address] Care Team Providers Care Primary Care Coordinator Name Role Phone Unavailable Primary Care Provider Unavailabl e Encounter Details Date Type Department Care Team (Late st Contact Info) Description 07/04/2022 Abstract [facility] ADULT DENTAL [address] [place] [address] Ramses Dayana [address] [place] [address] Social History Tobacco Use Types Packs/Day Years [...]
--- OUTSIDE RECORDS SUMMARY | 2024-03-31 16:40 | XMS_ITS | Clinical Summary ---
Author Organization [employer] Address [address] [place] [address] Care Team Providers Care Rugby Union Footballer Name Role Phone Unavailable Primary Care Provider [...] 1978 Sigmoidoscopy 1978 Alcohol/Substance Use Screening 1990 Family Planning (PISQ) 1993 Hepatitis C Screening 1996 Hepatitis B Vaccines [...] 5 Years) and At-Risk Patients (6 to 49) Years) Aged Out No longer eligible b [...] Most Recently Relevant to Health Maintenance Insurance [facility] MEDICAID STAND ADULT Member Subscriber Plan / Payer (Ef fective 2022-Present) Name:Yanet Martin Relation to Subscriber:Self Name:Yanet Martin Payer ID:Not on file Group ID:Not on file Type:Not on file Address: [place] [phone]
--- OUTSIDE RECORDS SUMMARY | 2024-03-31 16:40 | XMS_ITS | Encounter Summary ---
Author Organization [employer] Address [address] [place] [address] Care Team Providers Care Evaporator Supervisor Name Role Phone Unavailable Primary Care Provider Unavailabl e Encounter Details Date Type Department Care Team (Late st Contact Info) Description 07/06/2022 Abstract [facility] ADULT DENTAL [address] [place] [address] Ramses Dayana [address] [place] [address] Social History Tobacco Use Types Packs/Day Years [...]
== END 2024-03-31 15:13 | disposition home or self-care (01) ==
LOC: HO.ED 15:10
PROVIDERS: Physician Assistant; Emergency Provider Emergency Medicine; PCP Internal Medicine
DX: J06.9 Acute upper respiratory infection, unspecified (principal); R50.9 Fever, unspecified; E66.9 Obesity, unspecified; Z03.818 Encounter for observation for suspected exposure to other biological agents ruled out; Z68.37 Body mass index [BMI] 37.0-37.9, adult
CPT/HCPCS: 0241U; 87651; 99282; 99283

== ENCOUNTER 2024-04-03 06:07 | Emergency (ER) | payer OTHER, SELFPAY ==
--- NOTE | ~2024-04-03 | XR_ITS ---
EXAMINATION: XR CHEST CLINICAL INFORMATION: cough COMPARISON: None available. TECHNIQUE: Frontal view of the chest was obtained. FINDINGS: No significant abnormality is noted involving the heart, lungs, mediastinum, bony thorax or soft tissues. XR/XR chest 1V IMPRESSION: Unremarkable chest exam. Electronically signed by: Roque Castro MD 04/03/2024 07:18 AM [facility]
[2024-04-03 06:14] VITALS: BP 122/83; PULSE 96; RESP 20; TEMP 36.7; O2SAT 97; BMI 38.4
--- NOTE | 2024-04-03 06:39 | ED_ITS ---
HPI - URI/Sore Throat General Chief Complaint: Upper Respiratory Symptoms Stated Complaint: Flu-like symptoms Time Seen by Provider: 04/03/24 06:38 Source: patient Mode of arrival: ambulatory Limitations: no limitations History of Present Illness ED Provider: Arlen Lenz PA-C HPI Narrative: 43 yo female presenting to the ER for evaluation of 5 days of fevers at night, left sided facial pain and ear pain, coughing and body aches. She also had coughing and vomited once today. she feels intense pressure in the left side of her face when she coughs. fevers are subjective with sweats at night. no abdominal pain, SOB, difficulty breathing, chest pain. no known sick contacts. MD elicited complaint: fever, cough and other (facial pain) Onset (ago): day(s) (5) Consistency: progressively worsening Severity: moderate Description of mucous: clear Able to tolerate fluids by mouth: Yes Exacerbating factors: leaning forward and other (coughing) Relieving factors: nothing Associated symptoms: fever, chills, myalgias, headache, nasal congestion, cough and vomiting Treatments prior to arrival: none Related Data Previous Rx's ?Medication ?Instructions ?Recorded ondansetron 4 mg disintegrating 4 mg PO Q8H PRN nausea and 03/19/24 tablet vomiting #20 tabs amoxicillin 875 mg-potassium 1 tab PO BID #14 tabs 04/03/24 clavulanate 125 mg tablet ibuprofen 600 mg tablet 600 mg PO Q8H PRN fever or pain 04/03/24 #10 tabs ondansetron 4 mg disintegrating 4 mg PO Q8H PRN nausea and 04/03/24 tablet vomiting #10 tabs Allergies Allergy/AdvReac Type Severity Reaction Status Date / Time No Known Allergies Allergy Verified 04/03/24 06:19 [No Known Allergies*] Review of Systems 2 Review of Systems: Yes all other systems are reviewed and are negative [facility] Past Medical History Surgical History History of wisdom tooth extraction Family History Family History Mother Diabetes High blood pressure Father High blood pressure Prostate cancer Family/Other Breast cancer Social History Social History Household Members: Spouse and Family Housing: Apartment Alcohol intake: never Patient Tobacco Use Status: Never used Tobacco e-Cigarette/Vaping Use: Never Used Second Hand Smoke Exposure: No Advance Directives: No Advance Directives Information Provided: Yes service: No Current occupational status: unemployed Current occupational exposures/hazards: No Sexual orientation: Straight/Heterosexual Gender identity: Female Cognitive needs: No Hearing needs: No Vision needs: No Physical Exam 2 Vital Signs: Vital Signs: Last Vital Signs Temp 98 F 04/03/24 08:23 Pulse 93 04/03/24 08:23 Resp 16 04/03/24 08:23 BP 127/78 04/03/24 08:23 Pulse Ox 97 04/03/24 08:23 O2 Del Method Room Air 04/03/24 08:23 BMI result Body Mass Index 38.4 Appearance: Alert. Oriented X3. No acute distress. Head: normocephalic, atraumatic. Eyes: Pupils equal, round and reactive to light. ENT: Pharynx with mild erytherma of the posterior oropharynx. no tonsillar swelling or exudate. left maxillary sinus tenderness. left TM with erythema and effusion. normal right TM. Neck: Normal inspection. Neck supple. No LAD CVS: Normal heart rate and rhythm. Pulses normal. Respiratory: No respiratory distress. Breath sounds normal. Abdomen: Soft and nontender. +BS x4 Skin: Skin warm and dry. Normal skin color. Normal skin turgor. No rashes. Extremities: No lower extremity edema. No joint swelling. Neuro/psych: Oriented X 3. grossly normal, nonfocal. CN II-XII intact. Normal speech and cognition. Medical Decision Making Medical Decision Making [facility] Narrative: 43 yo female presenting with 5 days of subjective fevers, sinus pain/pressure, left ear pain. exam c/w sinus infection and ear infection. labs unremarkable. covid/flu/rsv negative. cxr clear. stable for d/c home with po abx and supportive care. staff nurse icu resource team used to discuss dx, tx, and return precautions. Differential Diagnosis Differential Diagnoses: The differential diagnosis associated with the presentation includes strep, covid, flu, rsv, other viral syndrome, bronchitis, pneumonia, AOM, sinus infection, ulloa's palsy Lab Data [facility] Lab Attestation statement: I reviewed the patient's lab results. thrmobocytosis which is chronic, no leukocytosis, normal renal function 04/03/24 06:42 04/03/24 06:42 Labs: Lab Results 04/03/24 04/03/24 Range/Units 06:33 06:42 WBC 9.3 (4.8-10.8) X10*3/uL RBC 4.68 (4.20-5.50) X10*6/uL Hgb 13.0 (12.0-16.0) g/dl Hct 39.0 (37.0-47.0) % MCV 83.3 (80.0-98.0) fL MCH 27.8 (27.0-33.0) pg MCHC 33.3 (31.0-35.0) g/dl RDW 14.7 (11.0-16.0) % Plt Count 511 H D (160-400) X10*3/uL MPV 8.6 L (9.4-12.3) fL Immature Gran % (Auto) 0.6 H (0.0-0.4) % Neut % (Auto) 62.2 (45-73) % Lymph % (Auto) 25.9 (20-40) % Coleman % (Auto) 10.2 (2-11) % Eos % (Auto) 0.8 (0-4) % Baso % (Auto) 0.3 (0-2) % Lymph # (Auto) 2.4 (1.2-4.9) X10*3/uL Coleman # (Auto) 1.0 (0.1-1.2) X10*3/uL Eos # (Auto) 0.1 (0.0-0.4) X10*3/uL Baso # (Auto) 0.0 (0.0-0.2) X10*3/uL Abs Immat Gran (auto) 0.06 H (0.00-0.03) X10*3/uL Absolute Neuts (auto) 5.8 (2.0-8.3) x10*3/uL Absolute Nucleated RBC 0.000 (0.0-0.012) X10*3/uL Nucleated RBC % (auto) 0.0 (0.0-0.2) /100WBC Sodium 137 (135-145) mmol/L Potassium 3.7 (3.3-5.1) mmol/L Chloride 102 (96-108) mmol/L Carbon Dioxide 23 (22-29) mmol/L Anion Gap 16 (12-20) BUN 14 (9-16) mg/dL Creatinine 0.70 (0.5-1.4) mg/dL Estim Creat Clear Calc 121.9 Estimated GFR > 60 Random Glucose 101 (60-115) mg/dL Calcium 9.3 (8.4-10.2) mg/dL Total Bilirubin 0.3 (0.0-1.0) mg/dL AST 22 (5-31) U/L ALT 22 (0-31) U/L Alkaline Phosphatase 78 (39-117) U/L Total Protein 8.7 H (6.5-8.0) g/dL Albumin 3.8 (3.5-5.0) g/dL Influenza Type A (PCR) NEGATIVE (Negative) Influenza Type B (PCR) NEGATIVE (Negative) RSV RNA Qual (PCR) NEGATIVE (Negative) SARS-CoV-2 RNA (RT-PCR) NEGATIVE (Negative) Independent Interpretation I performed an independent interpretation of an: Plain X-Ray Interpretation: no focal infiltrate or effusion Radiology Impression Discussion of test interpretation with radiology: I have reviewed the radiologist's reading. External Record Review External record reviewed: Outpatient record, Prior outpatient labs and Prior outpatient radiology Prescription Management I considered prescription management with: Pain Medication and Antibiotic Critical Care Time Critical Care Time Critical Care Time: No Discharge Plan Discharge Clinical Impression: Sinusitis Qualifiers: Sinusitis location: maxillary Chronicity: acute Recurrence: non-recurrent Q ualified Code(s): J01.00 - Acute maxillary sinusitis, unspecified Acute ear infection Qualifiers: Laterality: left Qualified Code(s): H66.92 - Otitis media, unspecified, left ear Patient Disposition: Home, Self-Care Instructions: Sinusitis (ED), Ear Infection (ED) Additional Instructions: You tested negative for COVID, Flu and RSV You have a sinus and ear infection Take the prescribed antibiotics as directed, complete the entire course and do not miss any doses Take motrin and tylenol as needed for fevers and pain Follow up with your doctor. If you develop new or worsening symptoms call 911 or come back to the ER for further evaluation. Prescriptions: New ondansetron 4 mg tablet,disintegrating 4 mg PO Q8H PRN (Reason: nausea and vomiting) Qty: 10 0RF amoxicillin-pot clavulanate 875-125 mg tablet 1 tab PO BID Qty: 14 0RF ibuprofen 600 mg tablet 600 mg PO Q8H PRN (Reason: fever or pain) Qty: 10 0RF No Action ondansetron 4 mg tablet,disintegrating 4 mg PO Q8H PRN (Reason: nausea and vomiting) Qty: 20 0RF Referrals: Gabi Serna MD [Primary Care Provider] - Stand Alone Forms: Work/School Release Interventions: ED Discharge Assessment Last Done: 04/03/24 08:23 Discharge Date/Time: 04/03/24 08:23 Print Language: Malagasy
[2024-04-03 06:48] LABS: MANUAL DIFF FLAG NO
[2024-04-03 06:49] LABS: Basophils Percent Auto 0.3 % (0-2); Eosinophils Absolute Auto 0.1 X10*3/uL (0.0-0.4); Eosinophils Percent Auto 0.8 % (0-4); Imm Gran Abs Auto 0.06 X10*3/uL (0.00-0.03); Imm Gran Pct Auto 0.6 % (0.0-0.4); Lymphocytes Absolute Auto 2.4 X10*3/uL (1.2-4.9); Lymphocytes Percent Auto 25.9 % (20-40); Mean Corpuscular HGB Conc 33.3 g/dl (31.0-35.0); Mean Corpuscular Hemoglobin 27.8 pg (27.0-33.0); Mean Corpuscular Volume 83.3 fL (80.0-98.0); Mean Platelet Volume 8.6 fL (9.4-12.3); Monocytes Percent Auto 10.2 % (2-11); Neutrophils Absolute Auto 5.8 x10*3/uL (2.0-8.3); Neutrophils Percent Auto 62.2 % (45-73); Platelet Count 511 X10*3/uL (160-400); Red Blood Count 4.68 X10*6/uL (4.20-5.50); Red Cell Distribution Width 14.7 % (11.0-16.0); White Blood Count 9.3 X10*3/uL (4.8-10.8)
[2024-04-03 07:05] LABS: Alanine Aminotransferase 22 U/L (0-31); Albumin Level 3.8 g/dL (3.5-5.0); Alkaline Phosphatase 78 U/L (39-117); Anion Gap 16 (12-20); Aspartate Amino Transferase 22 U/L (5-31); Bilirubin Total 0.3 mg/dL (0.0-1.0); Blood Urea Nitrogen 14 mg/dL (9-16); Calcium 9.3 mg/dL (8.4-10.2); Carbon Dioxide 23 mmol/L (22-29); Chloride 102 mmol/L (96-108); Creatinine Clr Calc Pharmacy 121.9; Estimated Glomerular Filt Rate > 60; Glucose Random 101 mg/dL (60-115); Potassium 3.7 mmol/L (3.3-5.1); Sodium 137 mmol/L (135-145); Total Protein 8.7 g/dL (6.5-8.0)
[2024-04-03 07:18] LABS: Influenza A PCR NEGATIVE (Negative); Influenza B PCR NEGATIVE (Negative); Resp Syncy Virus RNA Qual PCR NEGATIVE (Negative); SARS COV2 PCR INHOUSE NEGATIVE (Negative)
[2024-04-03 08:04] VITALS: BP 127/78; PULSE 93; RESP 16; TEMP 36.6; O2SAT 97
[2024-04-03 08:23] VITALS: BP 127/78; PULSE 93; RESP 16; TEMP 36.6; O2SAT 97
== END 2024-04-03 08:23 | disposition home or self-care (01) ==
PROVIDERS: Emergency Provider Internal Medicine; PCP Internal Medicine
DX: J01.00 Acute maxillary sinusitis, unspecified (principal); H66.92 Otitis media, unspecified, left ear; R51.9 Headache, unspecified; M79.10 Myalgia, unspecified site; R11.2 Nausea with vomiting, unspecified; R05.9 Cough, unspecified; R50.9 Fever, unspecified; R09.81 Nasal congestion; Z03.818 Encounter for observation for suspected exposure to other biological agents ruled out
CPT/HCPCS: 0241U; 71045; 80053; 85025; 99283

== ENCOUNTER → 2024-04-03 06:29 | Outpatient (BNV) | payer OTHER, SELFPAY | PROVIDERS: Emergency Provider Internal Medicine; PCP Internal Medicine; Visit Provider Radiology Diagnostic Radiology | DX: R05.9 Cough, unspecified (principal) | CPT/HCPCS: 71045 ==